=== PATIENT | male | born 1965 | race African-American/Black ===

== ENCOUNTER 2016-10-15 06:13 | Emergency (ER) | payer OTHER ==
[~2016-10-15] VITALS: Ht 182.9 cm; Wt 77.1 kg
[2016-10-15 06:29] VITALS: BP 116/78
--- NOTE | 2016-10-15 06:57 | NUR ---
PT GIVEN FOOD AND A SODA AND WAS TOLD THE IMPLEMENTATION COORDINATOR WILL SEE HIM THIS MORNING IN THE ER LOBBY, PT WALKED OUT OF THE ER WITH A STEADY GAIT
== END 2016-10-15 06:59 | disposition home or self-care (01) ==
LOC: ER 06:13
DX: F15.10 Other stimulant abuse, uncomplicated (principal); Z59.0 Homelessness; F17.210 Nicotine dependence, cigarettes, uncomplicated; I10 Essential (primary) hypertension; J45.909 Unspecified asthma, uncomplicated
CPT/HCPCS: 99283; A4606; Z7610

== ENCOUNTER 2018-03-20 14:14 | Emergency (ER) | payer OTHER ==
[~2018-03-20] VITALS: Ht 182.9 cm; Wt 77.1 kg
--- NOTE | 2018-03-20 14:30 | NUR ---
C/O BLE PAIN FROM "TOO MUCH WALKING AND "FROM PEOPLE FOLLOWING ME." DENIES SI/HI. PT IS AOX4, VSS, RR EVEN AND UNLABORED. CURRENTLY HOMELESS. SKIN COOL TO TOUCH, DRY, INTACT. DENIES SOB, DIZZINESS, WEAKNESS, N/V. READY FOR EVAL.
[2018-03-20 15:21] LABS: BASOPHILS # (AUTO) 0.1 /CMM (0.0-0.2); BASOPHILS % (AUTO) 1.1 % (0.0-2.0); EOSINOPHILS % (AUTO) 2.4 % (0.0-6.0); HEMATOCRIT 42 % (39-51); HEMOGLOBIN 13.8 g/dL (13.5-17.5); LYMPHOCYTES # (AUTO) 1.8 /CMM (0.8-4.8); LYMPHOCYTES % (AUTO) 24.3 % (20.0-44.0); MEAN CORPUSCULAR HGB CONC 33 g/dl (31.0-36.0); MEAN CORPUSCULAR VOLUME 106 fL (80-96); MONOCYTES # (AUTO) 0.5 /CMM (0.1-1.30); MONOCYTES % (AUTO) 6.9 % (2.0-12.0); NEUTROPHILS # (AUTO) 4.9 /CMM (1.8-8.9); NEUTROPHILS % (AUTO) 65.3 % (43.0-81.0); PLATELET COUNT (AUTO) 241 /CMM (150-450); RED BLOOD CELL COUNT(AUTO) 3.94 MIL/uL (4.5-6.0); WHITE BLOOD COUNT (AUTO) 7.5 K/uL (4.3-11.0)
[2018-03-20 15:24] LABS: CALCIUM, SERUM 9.1 mg/dL (8.5-10.1); CARBON DIOXIDE 25 mmol/L (21-32); CHLORIDE 103 mmol/L (98-107); CREATININE 0.9 mg/dL (0.6-1.3); GLUCOSE 85 mg/dL (74-106); POTASSIUM 4.1 mmol/L (3.5-5.1); SODIUM SERUM 137 mmol/L (136-145); UREA NITROGEN, BLOOD 9 mg/dL (7-18)
[2018-03-20 15:29] LABS: ALANINE AMINOTRANSFERASE 20 U/L (12-78); ALBUMIN 3.8 g/dL (3.4-5.0); ALCOHOL, BLOOD < 3 mg/dL (0-0); ALKALINE PHOSPHATASE 50 U/L (46-116); ASPARTATE AMINOTRANSFERASE 19 U/L (15-37); BILIRUBIN,DIRECT 0.1 mg/dL (0.0-0.2); BILIRUBIN,TOTAL 0.6 mg/dL (0.2-1.0); TOTAL PROTEIN, SERUM 7.5 g/dL (6.4-8.2)
[2018-03-20 15:31] LABS: ACETAMINOPHEN < 2 ug/ml (10-30); SALICYLATE 2.1 mg/dL (2.8-20.0)
--- NOTE | 2018-03-20 16:07 | NUR ---
PT PROVIDED MEAL TRAY
--- NOTE | 2018-03-20 16:24 | NUR ---
Patient is resting comfortably in bed with eyes closed. Easily aroused. VSS
[2018-03-20 16:28] LABS: APPEARANCE,URINE Clear (CLEAR); BILIRUBIN,URINE Negative (NEGATIVE); BLOOD, URINE Negative Ery/uL (NEGATIVE); COLOR,URINE Yellow (YELLOW); KETONES,URINE Negative (NEGATIVE); LEUKOCYTE ESTERASE ,URINE Trace (NEGATIVE); NITRITE, URINE Negative (NEGATIVE); PH,URINE 5.5 (5.0-8.0); PROTEIN,URINE Negative (NEGATIVE); UGLUCOSE Negative (NEGATIVE); UROBILINOGEN,URINE 0.2 EU/dL (0.2)
[2018-03-20 16:45] LABS: BACTERIA,URINE Few /HPF (None Seen); RBC,URINE NONE SEEN /HPF (0-2); SQUAMOUS EPITHELIAL CELL,UR Few /HPF (None Seen)
[2018-03-20 17:34] LABS: EOSINOPHILS % (MANUAL) 2 % (0-4); LYMPHOCYTES % (MANUAL) 27 % (16-48); MONOCYTES % (MANUAL) 7 % (0-11.0); NEUTROPHILS % (MANUAL) 64 (42-76)
--- NOTE | 2018-03-20 18:25 | NUR ---
Patient discharged to home in stable condition. Written and verbal after care instructions given. Patient verbalizes understanding of instruction. HOMELESS RESOURCES PROVIDED PER PT REQUEST.
[2018-03-20 18:33] VITALS: BP 125/76
== END 2018-03-20 18:02 | disposition home or self-care (01) ==
LOC: ER 14:17
DX: R25.2 Cramp and spasm (principal); I10 Essential (primary) hypertension; J45.909 Unspecified asthma, uncomplicated; F17.210 Nicotine dependence, cigarettes, uncomplicated; Z98.890 Other specified postprocedural states; Z59.0 Homelessness
CPT/HCPCS: 36415; 80048; 80076; 80305; 80329; 81001; 85025; 99283; A4606; G0480 ×2; Z7610; 81000-TC

== ENCOUNTER 2018-09-23 16:15 | Emergency (ER) | payer OTHER ==
[~2018-09-23] VITALS: Ht 182.9 cm; Wt 77.1 kg
[2018-09-23 16:24] VITALS: BP 140/80
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
--- NOTE | 2018-09-23 16:51 | NUR ---
DR HAMM AT BEDSIDE FOR EVAL.
[2018-09-23] MEDS ORDERED: AZITHROMYCIN 250 MG TABLET PO ONE (17:00)
[2018-09-23] MEDS ORDERED: CEFTRIAXONE 500 MG VIAL IM ONE (17:00)
[2018-09-23] MEDS ORDERED: CEFTRIAXONE 500 MG VIAL ONE (17:21)
[2018-09-23] MEDS ORDERED: AZITHROMYCIN 250 MG TABLET ONE (17:22)
[2018-09-23] MEDS ORDERED: LIDOCAINE 1% INJ 50 ML MDV IJ ONE (17:25)
[2018-09-23] MEDS ORDERED: LIDOCAINE 4% PF AMPUL 40 MG/ML AMPUL ONE (17:27)
--- NOTE | 2018-09-23 18:44 | NUR ---
U/S TECH AT BEDSIDE FOR SCROTAL ULTRASOUND.
[2018-09-23 19:15] LABS: APPEARANCE,URINE Clear (CLEAR); BILIRUBIN,URINE SMALL (NEGATIVE); BLOOD, URINE Trace-intact Ery/uL (NEGATIVE); COLOR,URINE Yellow (YELLOW); KETONES,URINE Negative (NEGATIVE); LEUKOCYTE ESTERASE ,URINE Moderate (NEGATIVE); NITRITE, URINE Negative (NEGATIVE); PROTEIN,URINE Negative (NEGATIVE); UGLUCOSE Negative (NEGATIVE)
[2018-09-23 19:28] LABS: BACTERIA,URINE Many /HPF (None Seen); RBC,URINE 0-2 /HPF (0-2); WBC,URINE TOO NUMEROUS TO COUN /HPF (0-3)
--- NOTE | 2018-09-23 19:28 | NUR ---
REPORT TO CHELSEY LOZANO FOR NALDO.
[2018-09-23 19:29] LABS: SQUAMOUS EPITHELIAL CELL,UR Few /HPF (None Seen)
== END 2018-09-23 20:24 | disposition home or self-care (01) ==
LOC: ER 16:18
DX: A64 Unspecified sexually transmitted disease (principal); N39.9 Disorder of urinary system, unspecified; I10 Essential (primary) hypertension; J45.909 Unspecified asthma, uncomplicated; F17.210 Nicotine dependence, cigarettes, uncomplicated; Z98.890 Other specified postprocedural states; Z59.0 Homelessness
CPT/HCPCS: 76870; 81001; 87086; 87491; 87591; 96372; 99284; J0696; J3490 ×2; 81000-TC

== ENCOUNTER 2018-10-27 14:03 | Emergency (ER) | payer OTHER ==
[~2018-10-27] VITALS: Ht 182.9 cm; Wt 77.1 kg
[2018-10-27 15:07] LABS: BASOPHILS # (AUTO) 0.1 /CMM (0.0-0.2); BASOPHILS % (AUTO) 1.1 % (0.0-2.0); EOSINOPHILS % (AUTO) 2.4 % (0.0-6.0); HEMATOCRIT 41 % (39-51); HEMOGLOBIN 13.6 g/dL (13.5-17.5); LYMPHOCYTES # (AUTO) 1.8 /CMM (0.8-4.8); LYMPHOCYTES % (AUTO) 29.3 % (20.0-44.0); MEAN CORPUSCULAR HGB CONC 33 g/dl (31.0-36.0); MEAN CORPUSCULAR VOLUME 104 fL (80-96); MONOCYTES # (AUTO) 0.5 /CMM (0.1-1.30); MONOCYTES % (AUTO) 8.9 % (2.0-12.0); NEUTROPHILS # (AUTO) 3.5 /CMM (1.8-8.9); NEUTROPHILS % (AUTO) 58.3 % (43.0-81.0); PLATELET COUNT (AUTO) 283 /CMM (150-450); WHITE BLOOD COUNT (AUTO) 6.1 K/uL (4.3-11.0)
--- NOTE | 2018-10-27 15:07 | NUR ---
patient came in due to difuse abd pain, no bm x 4 days. On room air, breathing evenly and unlabored. Ambulatory with steady gait. Kept comfortable, will contiune to monitor accordingly.
[2018-10-27 15:16] LABS: CALCIUM, SERUM 9.3 mg/dL (8.5-10.1); CREATININE 1.2 mg/dL (0.6-1.3); POTASSIUM 4.4 mmol/L (3.5-5.1)
[2018-10-27 15:22] LABS: ALBUMIN 3.9 g/dL (3.4-5.0); BILIRUBIN,DIRECT 0.1 mg/dL (0.0-0.2); BILIRUBIN,TOTAL 0.5 mg/dL (0.2-1.0); TOTAL PROTEIN, SERUM 7.4 g/dL (6.4-8.2)
[2018-10-27 15:34] LABS: EOSINOPHILS % (MANUAL) 2 % (0-4); LYMPHOCYTES % (MANUAL) 27 % (16-48); MONOCYTES % (MANUAL) 9 % (0-11.0); NEUTROPHILS % (MANUAL) 62 (42-76)
[2018-10-27 16:36] LABS: APPEARANCE,URINE Cloudy (CLEAR); BILIRUBIN,URINE MODERATE (NEGATIVE); BLOOD, URINE Negative Ery/uL (NEGATIVE); COLOR,URINE Amber (YELLOW); KETONES,URINE 15 (NEGATIVE); LEUKOCYTE ESTERASE ,URINE Trace (NEGATIVE); NITRITE, URINE Negative (NEGATIVE); PH,URINE 5.5 (5.0-8.0); PROTEIN,URINE 30 mg/dl (NEGATIVE); UGLUCOSE Negative (NEGATIVE)
[2018-10-27 16:56] LABS: BACTERIA,URINE Few /HPF (None Seen); MUCUS,URINE Many /LPF (None Seen); RBC,URINE 0-2 /HPF (0-2); SQUAMOUS EPITHELIAL CELL,UR Few /HPF (None Seen); URINE AMORPHOUS URATE Moderate /HPF (None Seen); WBC,URINE 21-50 /HPF (0-3)
[2018-10-27 18:13] VITALS: BP 130/65
--- NOTE | 2018-10-27 18:14 | NUR ---
Patient discharged to home in stable condition. Written and verbal after care instructions given. Patient verbalizes understanding of instruction. tap card and food provided, left in appropriate clothes.
== END 2018-10-27 18:14 | disposition home or self-care (01) ==
LOC: ER 14:06
DX: R91.1 Solitary pulmonary nodule (principal); N50.89 Other specified disorders of the male genital organs; K76.89 Other specified diseases of liver; N39.0 Urinary tract infection, site not specified; I10 Essential (primary) hypertension; J45.909 Unspecified asthma, uncomplicated; F17.210 Nicotine dependence, cigarettes, uncomplicated; Z98.890 Other specified postprocedural states; Z59.0 Homelessness
CPT/HCPCS: 36415; 80048-TC; 80076-TC; 81000-TC; 83690-TC; 85025-TC; 87086-TC

== ENCOUNTER → 2018-12-21 | Emergency (ER) | payer OTHER ==
[~2018-12-21] VITALS: Ht 177.8 cm; Wt 72.6 kg
[~2018-12-21] MED LIST: IBUPROFEN 600 MG TABLET PO ONE
--- NOTE | 2018-12-21 13:42 | NUR ---
CALLED [employer] [facility] AWARE
--- NOTE | 2018-12-21 13:45 | NUR ---
Social service consult requested by SAJAN Li for homelessness and sober living resources. DONAVON met with the pt. bedside. Pt. is alert and oriented x 4. Pt. appears disheveled and his toe nails have dirt in them. Pt. states he is homeless and is looking for a sober living. DONAVON inquired with pt. if he has the funds to pay for the sober living. Pt. stated, " No, I will have it on January 07." SW informed pt. she will give him a list of sober livings he can call once he has the money. Pt. understood. SW offered pt. longterm placement, however pt. declined. Pt. denies suicidal and homicidal ideations and visual/auditory hallucinations at this time. Pt. was given a list of sober livings along with the following homeless resources: [facility] located at [address] [place] [address] ; [facility], [address] ; [facility] [place], [address] [facility] [place] [place] ; [facility] Homeless Resource Directory which includes food stamps, transitional housing, showers and hot meals etc; Mental Health clinics such as [facility] ; [facility] ; Health clinics;[facility] and Alcohol treatment centers such as [facility], ; [facility] Substance Abuse Hotline and [facility] . Pt. was provided with a sandwich, water and TAP card. Homeless patient waiver form was signed by the pt. and placed in pt's chart. No other social service needs are requested at this time. DONAVON updated pt's RN Landy with pt. discharge plan.
--- NOTE | 2018-12-21 14:10 | NUR ---
PATIENT AWAKE ALERT DENIES SI ,DENIES HALLUCINATION HE REFUSED RESIDENTIAL ,GIVEN REFFERAL BY director of land ,PATIENT GIVEN SNACK AND APPRECIATED IT HE AGREES TO FOLLOW UP PMD IN AM
[2018-12-21 14:13] VITALS: BP 123/78
--- NOTE | 2018-12-21 14:30 | NUR ---
Patient DECLINED CORRECTION DC in stable condition. Written and verbal after care instructions given. Patient verbalizes understanding of instruction.PATIENT WOULD LIKE TO STAY IN PREVIOUS LIVING ARRANGEMENT .CORRECTION REFERRAL GIVEN
== END | disposition home or self-care (01) ==
LOC: ER 12:58
DX: S00.411A Abrasion of right ear, initial encounter (principal); H92.03 Otalgia, bilateral; I10 Essential (primary) hypertension; J45.909 Unspecified asthma, uncomplicated; F10.10 Alcohol abuse, uncomplicated; F17.210 Nicotine dependence, cigarettes, uncomplicated; Y90.9 Presence of alcohol in blood, level not specified; Z59.0 Homelessness; Z98.890 Other specified postprocedural states; X58.XXXA Exposure to other specified factors, initial encounter; Y93.89 Activity, other specified; Y92.89 Other specified places as the place of occurrence of the external cause; Y99.8 Other external cause status

== ENCOUNTER 2019-04-14 10:11 | Emergency (ER) | payer OTHER ==
[~2019-04-14] VITALS: Ht 182.9 cm; Wt 74.8 kg
[2019-04-14 10:16] VITALS: BP 124/76
--- NOTE | 2019-04-14 11:17 | NUR ---
Patient given written and verbal discharge instructions. Patient verbalizes understanding of instructions. Patient is ambulatory with steady gait. Refuses offer of halfway placement. Patient given list of available shelters in surrounding area.
[2019-04-14] MEDS ORDERED: IBUPROFEN 600 MG TABLET PO ONE ×2 (11:30→11:51)
--- NOTE | 2019-04-14 11:40 | NUR ---
FOOD TRAY PROVIDED.
== END 2019-04-14 12:28 | disposition home or self-care (01) ==
LOC: ER 10:13
DX: R10.84 Generalized abdominal pain (principal); I10 Essential (primary) hypertension; J45.909 Unspecified asthma, uncomplicated; F10.10 Alcohol abuse, uncomplicated; F17.210 Nicotine dependence, cigarettes, uncomplicated; Y90.9 Presence of alcohol in blood, level not specified; Z98.890 Other specified postprocedural states; Z59.0 Homelessness

== ENCOUNTER 2019-06-10 14:20 | Emergency (ER) | payer OTHER ==
[~2019-06-10] VITALS: Ht 170.2 cm; Wt 77.1 kg
--- NOTE | 2019-06-10 14:41 | NUR ---
"Cough/congestion x3wks. Live in Sober Living". REPORTS COUGH IS PRODUCTIVE WITH GREEN SPUTUM, AND STATES HAVING SHORTNESS OF BREATH. "A LOT OF PEOPLE HAVE BEEN TOUCHING ME". ALSO C/O LEFT ARM PAIN. NO ACUTE DISTRESS NOTED. RR EVEN AND UNLABORED MADE COMFORTABLE AND READY FOR EVAL.
--- NOTE | 2019-06-10 15:12 | NUR ---
XRAY AT BEDSIDE
--- NOTE | 2019-06-10 16:03 | NUR ---
Patient is resting comfortably in bed with eyes closed. Easily aroused. VSS
[2019-06-10 16:26] VITALS: BP 133/85
[2019-06-19] MEDS ORDERED: ASPI-1169 PO (08:52)
[2019-06-19] MEDS ORDERED: ATOR10TA PO (08:52)
== END 2019-06-10 16:30 | disposition home or self-care (01) ==
LOC: ER 14:22
DX: R05 Cough (principal); F17.210 Nicotine dependence, cigarettes, uncomplicated; I10 Essential (primary) hypertension; J45.909 Unspecified asthma, uncomplicated; Z98.890 Other specified postprocedural states; Z59.0 Homelessness
CPT/HCPCS: 71045-TC

== ENCOUNTER 2019-06-15 16:52 | Inpatient (IN) | payer OTHER ==
[~2019-06-15] VITALS: Ht 182.9 cm; Wt 78.1 kg
--- NOTE | 2019-06-15 16:58 | NUR ---
CAME IN FOR R SIDED SHARP CHEST PAIN RADIATING TO NECK AND BACK WHILE WALKING X 1 HR 3/10 PS, ALSO C/O HEADACHE. TO ER BED 11, HOOKED TO MONITOR, CHANGED TO HOSP GOWN, WARM BLANKET PROVIDED, AWAITING MD AG.
--- NOTE | 2019-06-15 17:01 | NUR ---
COMPUTER TECHNOLOGY TEACHER DEGRASSE AT BEDSIDE
[2019-06-15] MEDS ORDERED: IV NS 0.9% 1,000 ML BAG IV ONE (17:30)
[2019-06-15 17:35] LABS: BASOPHILS # (AUTO) 0.1 /CMM (0.0-0.2); BASOPHILS % (AUTO) 1.2 % (0.0-2.0); EOSINOPHILS % (AUTO) 2.4 % (0.0-6.0); HEMATOCRIT 38 % (39-51); HEMOGLOBIN 12.9 g/dL (13.5-17.5); LYMPHOCYTES % (AUTO) 26.9 % (20.0-44.0); MEAN CORPUSCULAR HGB CONC 34 g/dl (31.0-36.0); MEAN CORPUSCULAR VOLUME 103 fL (80-96); MONOCYTES # (AUTO) 0.7 /CMM (0.1-1.30); MONOCYTES % (AUTO) 9.3 % (2.0-12.0); NEUTROPHILS # (AUTO) 4.5 /CMM (1.8-8.9); NEUTROPHILS % (AUTO) 60.2 % (43.0-81.0); PLATELET COUNT (AUTO) 292 /CMM (150-450); RED BLOOD CELL COUNT(AUTO) 3.75 MIL/uL (4.5-6.0); WHITE BLOOD COUNT (AUTO) 7.5 K/uL (4.3-11.0)
[2019-06-15 17:48] LABS: ALANINE AMINOTRANSFERASE 15 U/L (12-78); ALBUMIN 3.7 g/dL (3.4-5.0); ALKALINE PHOSPHATASE 49 U/L (46-116); ASPARTATE AMINOTRANSFERASE 12 U/L (15-37); BILIRUBIN,DIRECT 0.1 mg/dL (0.0-0.2); BILIRUBIN,TOTAL 0.4 mg/dL (0.2-1.0); CALCIUM, SERUM 8.9 mg/dL (8.5-10.1); CARBON DIOXIDE 30 mmol/L (21-32); CHLORIDE 106 mmol/L (98-107); CREATININE 1.1 mg/dL (0.6-1.3); GLUCOSE 77 mg/dL (74-106); POTASSIUM 3.8 mmol/L (3.5-5.1); SODIUM SERUM 143 mmol/L (136-145); TOTAL PROTEIN, SERUM 7.2 g/dL (6.4-8.2); UREA NITROGEN, BLOOD 11 mg/dL (7-18)
[2019-06-15] MEDS ORDERED: AZITHROMYCIN 500 MG in IV D5W 250 ML IV SCH (18:00)
[2019-06-15] MEDS ORDERED: CEFTRIAXONE 1GM BAG (ER ONLY) 1 GM/50 ML PIGGYBACK IV ONE (18:00)
[2019-06-15] MEDS ORDERED: OLAN15TA3 PO (18:28)
[2019-06-15] MEDS ORDERED: CEFTRIAXONE 1 G in IV D5W 50 ML IV ONE (18:30)
--- NOTE | 2019-06-15 18:30 | NUR ---
HOME HEALTH AID/MED RECON PATIENT UNABLE TO PROVIDE ANY INFO RE: HOME MEDICATION INFORMATION. PER PATIENT REQUEST, CALLED [facility] TECHNICIAN ([phone]) AND OBTAINED MEDICATION INFORMATION.
[2019-06-15 18:50] LABS: FERRITIN 60 ng/mL (8-388)
--- NOTE | 2019-06-15 19:11 | NUR ---
REPORT GIVEN TO YADIRA LOZANO FOR NALDO
--- NOTE | 2019-06-15 19:19 | NUR ---
PAGED [facility].
--- NOTE | 2019-06-15 19:37 | NUR ---
REPORT RECEIVED FROM MARTA HUGO FOR NALDO
--- NOTE | 2019-06-15 20:03 | NUR ---
URINE COLLECTED AND SENT TO LAB
--- NOTE | 2019-06-15 20:03 | NUR ---
WHITE SWAB SENT TO LAB
--- NOTE | 2019-06-15 20:21 | NUR ---
BED ASSIGNMENT TELE 105
[2019-06-15 20:25] LABS: APPEARANCE,URINE Clear (CLEAR); BACTERIA,URINE None seen /HPF (None Seen); BILIRUBIN,URINE Negative (NEGATIVE); BLOOD, URINE Negative Ery/uL (NEGATIVE); COLOR,URINE Yellow (YELLOW); KETONES,URINE Negative (NEGATIVE); LEUKOCYTE ESTERASE ,URINE Trace (NEGATIVE); NITRITE, URINE Negative (NEGATIVE); PROTEIN,URINE Negative (NEGATIVE); RBC,URINE 0-2 /HPF (0-2); SQUAMOUS EPITHELIAL CELL,UR Few /HPF (None Seen); UGLUCOSE Negative (NEGATIVE); UROBILINOGEN,URINE 0.2 EU/dL (0.2); WBC,URINE 0-2 /HPF (0-3)
--- NOTE | 2019-06-15 20:27 | NUR ---
CALL BACK IN 15 MINUTES
--- NOTE | 2019-06-15 20:54 | NUR ---
CALLED BACK TO GIVE REPORT, NURSE IS NOT READY
[2019-06-15 21:00] VITALS: BP 116/93
[2019-06-15] MEDS ORDERED: MAG HYDROX/AL HYDROX/SIMETH 30 ML UDC PO PRN (21:00)
[2019-06-15] MEDS ORDERED: ONDANSETRON HCL/PF 4 MG/2 ML VIAL IVP PRN (21:00)
[2019-06-15] MEDS ORDERED: ACETAMINOPHEN 325 MG TABLET PO PRN (21:00)
[2019-06-15] MEDS ORDERED: MAGNESIUM HYDROXIDE 30 ML UDC PO PRN (21:00)
[2019-06-15] MEDS ORDERED: Z GUARD REMEDY 2 OZ OINT TP PRN (21:00)
--- NOTE | 2019-06-15 21:32 | NUR ---
REPORT GIVEN TO MARTA PERDUE
--- NOTE | 2019-06-15 21:34 | NUR ---
Received report from MARTA Nino.
--- NOTE | 2019-06-15 21:41 | NUR ---
RN OPENING NOTE: Pt transferred to unit via gurney accompanied by RN and tech. Ambulated to bed, skin check done, head to toe done. Pt A&Ox4. On RA, no respiratory distress or SOB noted. On tele monitor showing SR w/ 1st degree AV block. No IV access, d/c'd in ER. Urinal at bedside. Vitals: BP: 116/93 P: 82 RR: 20 O2 100% T 98.5. Pt's cigarettes and metallurgical lab technician taken, labeled and placed in contraband safe. Pt aware. Safety measures in place. Bed in lowest and locked position, side rails up x2, call light within reach. Will continue to monitor.
--- NOTE | 2019-06-15 21:46 | NUR ---
PT TRANSFERED PER ACLS PROTOCOL
[2019-06-15] MEDS: OLANZAPINE 10 MG TABLET PO SCH (22:10)
[2019-06-15] MEDS: ENOXAPARIN SODIUM 40 MG/0.4 ML DISP.SYRIN SQ SCH (22:11)
[2019-06-16] VITALS: BP 93/65
[2019-06-16 04:00] VITALS: BP 107/72
--- NOTE | 2019-06-16 06:42 | NUR ---
RN CLOSING NOTE: Pt resting in bed, A&Ox4. On isolation for R/O Covid. On RA O2 sat WNL. No respiratory distress or SOB noted. No acute changes noted during shift. On tele monitor fluctuating between SB and SR w/ 1st degree AV block. IV site on RAC patent and flushing. Dressing c/d/i. Safety measures in place. Will endorse to AM nurse for NALDO.
[2019-06-16 06:44] LABS: BASOPHILS # (AUTO) 0.1 /CMM (0.0-0.2); BASOPHILS % (AUTO) 1.2 % (0.0-2.0); EOSINOPHILS % (AUTO) 3.5 % (0.0-6.0); HEMATOCRIT 40 % (39-51); LYMPHOCYTES # (AUTO) 2.4 /CMM (0.8-4.8); LYMPHOCYTES % (AUTO) 38.8 % (20.0-44.0); MEAN CORPUSCULAR HGB CONC 32 g/dl (31.0-36.0); MEAN CORPUSCULAR VOLUME 102 fL (80-96); MONOCYTES # (AUTO) 0.6 /CMM (0.1-1.30); MONOCYTES % (AUTO) 9.3 % (2.0-12.0); NEUTROPHILS # (AUTO) 2.9 /CMM (1.8-8.9); NEUTROPHILS % (AUTO) 47.2 % (43.0-81.0); PLATELET COUNT (AUTO) 273 /CMM (150-450); RED BLOOD CELL COUNT(AUTO) 3.95 MIL/uL (4.5-6.0); WHITE BLOOD COUNT (AUTO) 6.1 K/uL (4.3-11.0)
[2019-06-16 06:52] LABS: CALCIUM, SERUM 8.6 mg/dL (8.5-10.1); CREATININE 0.9 mg/dL (0.6-1.3); MAGNESIUM 2.1 mg/dL (1.8-2.4); POTASSIUM 3.9 mmol/L (3.5-5.1)
[2019-06-16 07:03] LABS: THYROID STIMULATING HORMONE 1.857 uIU/mL (0.358-3.74)
[2019-06-16 08:00] VITALS: BP 148/81
[2019-06-16] MEDS: ASPIRIN 81 MG TAB.CHEW PO SCH (09:46)
[2019-06-16] MEDS: ATORVASTATIN 10 MG TABLET PO SCH (09:46)
[2019-06-16 12:00] VITALS: BP 143/91
[2019-06-16 16:00] VITALS: BP 121/76
[2019-06-16] MEDS: AZITHROMYCIN 500 MG in IV D5W 250 ML IV SCH (16:51)
[2019-06-16] MEDS: CEFTRIAXONE 1 G in IV D5W 50 ML IV SCH (17:45)
--- NOTE | 2019-06-16 18:00 | NUR ---
Perineal care, reposition. Large, soft brown bowel movement output. Marcin Messina RN
--- NOTE | 2019-06-16 18:57 | NUR ---
Handoff with night team registered nurse. Marcin Messina RN
--- NOTE | 2019-06-16 19:20 | NUR ---
MS RN RECEIVE PT IN BED A/O X 4 ON CARDIAC MONITORING, SR 94'S HR RESPIRATIONS EVEN AND UNLABORED, STABLE. NO S/S OF DISTRESS, 02 SAT 100%. SAFETY MEASURES AT ALL TIMES. WILL CONT TO MONITOR
[2019-06-16 20:00] VITALS: BP 118/72
[2019-06-16] MEDS: OLANZAPINE 10 MG TABLET PO SCH (22:00)
[2019-06-16] MEDS: HYDROCODONE/APAP 5/325MG 1 EACH TABLET PO PRN (22:00)
[2019-06-16] MEDS: ENOXAPARIN SODIUM 40 MG/0.4 ML DISP.SYRIN SQ SCH (22:03)
[2019-06-17] VITALS (8 sets, daily range): BP systolic 106–141; BP diastolic 59–95
--- NOTE | 2019-06-17 06:18 | NUR ---
TOOTH POLISHER PT ASLEEP AND EASILY AWAKEN, O2 SAT 100%. SLEPT WELL AND MONITORED ACCORDINGLY. ALL NEEDS ATTENDED AND ANTICIPATED, KEPT CLEAN, DRY AND COMFORTABLE. ON CARDIAC MONITORING SR 60 HR IN TELE MONITOR. NO C/O OF PAIN AT THIS TIME. NURSING CARE RENDERED. SAFETY MEASURES AT ALL TIMES. WILL CONT TO ENDORSE POC.
--- NOTE | 2019-06-17 06:33 | NUR ---
LAB CALLED CRITICAL LOW HGB PAGED HOSPITALIST AWAITING CALL BACK Addendum: 06/17/19 at 0634 by KELLE BARROS RN MISTAKEN ENTRY PLS DISREGARD THIS DOCUMENTATION THIS IS FOR DIFFERENT PATIENT
--- NOTE | 2019-06-17 07:35 | NUR ---
REHABILITATOR OPENING NOTES RECEIVED PT IN BED, ASLEEP, EASILY AROUSED. A/O X4. PT ON RA, WITH NO ACUTE RESPIRATORY DISTRESS NOTED. PT DENIES PAIN OR ANY DISCOMFORT AT THIS TIME. PT DENIES ANY CONCERNS AT THIS TIME WELL. ON TELEMONITORING WITH SB 55, DENIES CHEST PAIN. PIV TO RAC G20, FLUSHED WITH NS, INTACT AND OPERATIONAL. PT KEPT COMFORTABLE IN BED. PT'S BED IN LOWEST, LOCKED POSITION WITH SR X3. CALL LIGHT KEPT WITHIN REACH. WILL CONTINUE PLAN OF CARE.
[2019-06-17] MEDS: ATORVASTATIN 10 MG TABLET PO SCH (08:16)
[2019-06-17] MEDS: ASPIRIN 81 MG TAB.CHEW PO SCH (08:16)
[2019-06-17] MEDS: AZITHROMYCIN 500 MG in IV D5W 250 ML IV SCH (16:05)
[2019-06-17] MEDS: CEFTRIAXONE 1 G in IV D5W 50 ML IV SCH (17:09)
--- NOTE | 2019-06-17 18:38 | NUR ---
MANAGER RN CASE CLOSING NOTES PT REMAINS IN BED,AWAKE. A/O X4. PT ON RA, WITH NO ACUTE RESPIRATORY DISTRESS NOTED. PT DENIES PAIN OR ANY DISCOMFORT AT THIS TIME. ON TELEMONITORING WITH SR 68. PIV TO RAC G20, FLUSHED WITH NS, INTACT AND OPERATIONAL. ALL NEEDS AND CARE ATTENDED. PT KEPT COMFORTABLE IN BED. PT'S BED IN LOWEST, LOCKED POSITION WITH SR X3. CALL LIGHT KEPT WITHIN REACH. WILL ENDORSE TO INCOMING NIGHT NURSE FOR NALDO.
--- NOTE | 2019-06-17 20:00 | NUR ---
RN NOTES ALERT AND ORIENTED X4, ROOM AIR, NO DISTRESS, ABDOMINAL PAIN, NO N/V, TOLERATING ORAL DIET, R/O COVID, STRICT ISOLATION PRECAUTION, WILL CONTINUE TO MONITOR.
[2019-06-17] MEDS: ENOXAPARIN SODIUM 40 MG/0.4 ML DISP.SYRIN SQ SCH (20:45)
[2019-06-17] MEDS: OLANZAPINE 10 MG TABLET PO SCH (20:46)
[2019-06-17] MEDS: HYDROCODONE/APAP 5/325MG 1 EACH TABLET PO PRN (21:06)
[2019-06-18] VITALS (8 sets, daily range): BP systolic 100–126; BP diastolic 54–84
--- NOTE | 2019-06-18 06:14 | NUR ---
RN NOTES PM SHIFT ALERT AND ORIENTED X4, ROOM AIR, DIMINISHED LUNG SOUNDS, INTERMITTENT DRY COUGH, COMPLAINED OF ABDOMINAL PAIN, NORCO 1 TAB GIVEN WITH GOOD RELIEF, R/O COVID, TEST DONE 06/15/19, POSSIBLE COMMUNITY ACQUIRED PNA, CONTACT ASTRONAUTICAL ENGINEER ON DISCHARGE AT , PT CAME FROM SOBER LIVING
--- NOTE | 2019-06-18 07:30 | NUR ---
Tele/RN Opening Note Received patient AO X 4, Able to responds all stimuli. Does no c/o pain or discomfort, no adverse reaction observed from ATB therapy. Skin is warm to touch clean/dry, intact IV site. No sob or distress observed from respiratory. Keep remain lower position of the bed with locked wheel, call light within reach, will continue to monitor.
[2019-06-18] MEDS: ASPIRIN 81 MG TAB.CHEW PO SCH (08:24)
[2019-06-18] MEDS: ATORVASTATIN 10 MG TABLET PO SCH (08:24)
[2019-06-18] MEDS: AZITHROMYCIN 500 MG in IV D5W 250 ML IV SCH (16:59)
[2019-06-18] MEDS: CEFTRIAXONE 1 G in IV D5W 50 ML IV SCH (17:43)
--- NOTE | 2019-06-18 18:25 | NUR ---
Tele/RN closing Note Patient in bed, watching TV comfortably, denies pain or any discomfort, no adverse reaction observed from ATB therapy. Respiratory even and unlabored, no distress observed, no sob also. Encouraged oral fluid intake as tolerated Keep remain lower position of the bed and locked wheel for safety. Still pending covid test result. Call light within reach, will endorse restaurant shift supervisor .
--- NOTE | 2019-06-18 19:15 | NUR ---
Tele/RN opening Note report recieved from armand sebastian. pt seen and pt denies pain or discomfort, Respirations are even and unlabored, in no apparent distress bed locked and in the lowest position. covid isolation precuations in place. Still pending covid test result. Call light within reach, will cont to monitor.
[2019-06-18] MEDS: ENOXAPARIN SODIUM 40 MG/0.4 ML DISP.SYRIN SQ SCH (21:41)
[2019-06-18] MEDS: OLANZAPINE 10 MG TABLET PO SCH (21:42)
[2019-06-19 00:30] VITALS: BP 115/69
[2019-06-19 04:00] VITALS: BP 121/78
--- NOTE | 2019-06-19 06:40 | NUR ---
Tele/RN CLOSING Note PATIENT IN BED DENIES PAIN DISCOMFORT RESP EVEN AND UNLABORED IN NO APPARENT DISTRESS. BED DOWN LOCKED . PATIENT COVID TEST RESULTED YESTERDAY AND THE RESULTS WERE NEGATIVE. Call light within reach, BEING MONITORED ON TURRET LATHE SET UP OPERATOR. RATE IS AT 71.
[2019-06-19 08:00] VITALS: BP 115/71
--- NOTE | 2019-06-19 08:00 | NUR ---
RN NOTES RECEIVED PATIENT IN THE ROOM WALKING SURROUNDING. PATIENT NEGATIVE FOR COVIS -19 RESULT, JNOA CUTE RESPIRATORY DISTRESS, V/S STABLE. ADMINISTERED SCHEDULED MEDICATION . PER HOSPITALIST PATIENT WILL DISCHARGE HOME. CALL LIGHT WITHIN TO REACH, PATIENT SELF CARE. NEEDS ATTENDED AND ANTICIPATED. CALL LIGHT WITHIN TO REACH. CONTINUED MONITORING.
[2019-06-19] MEDS ORDERED: ATOR10TA PO (08:52)
[2019-06-19] MEDS ORDERED: ASPI-1169 PO (08:52)
[2019-06-19] MEDS: ATORVASTATIN 10 MG TABLET PO SCH (09:25)
[2019-06-19] MEDS: ASPIRIN 81 MG TAB.CHEW PO SCH (09:25)
--- NOTE | 2019-06-19 11:40 | NUR ---
PV INSTALLER TECH NOTES PATIENT DISCHARGE AT THIS TIME GOING HOME. PATIENT STABLE NO ACUTE RESPIRATORY DISTRESS, V/S STABLE, REFUSED PAIN. MED RECONCILIATION AND DISCHARGE ORDER REVIEWED AND EXPLAINED TO. PATIENT VERBALIZED UNDERSTANDING. PRESCRIPTION HANDED TO THE PATIENT. PATIENT WILL FOLLOW PRIMARY MD. ESCORTED PATIENT TO THE LOBBY FOR SAFETY. PATIENT AMBULATE OUT OF HOSPITAL.
== END 2019-06-19 11:15 | disposition home or self-care (01) | DRG 139 ==
LOC: ER 16:52 → TELE1 20:55
PROVIDERS: ADMIT Nurse Practitioner Acute Care; ATTEND Internal Medicine
DX: J15.9 Unspecified bacterial pneumonia (principal); F20.9 Schizophrenia, unspecified; I25.10 Atherosclerotic heart disease of native coronary artery without angina pectoris; I10 Essential (primary) hypertension; J45.909 Unspecified asthma, uncomplicated; F17.210 Nicotine dependence, cigarettes, uncomplicated; I25.2 Old myocardial infarction; Z71.6 Tobacco abuse counseling; J98.11 Atelectasis; R07.81 Pleurodynia
CPT/HCPCS: 36415; 71045-TC; 80048-TC; 80061-TC; 80076-TC; 81000-TC; 82728-TC; 83615-TC; 83735-TC; 84100-TC; 84443-TC; 84484-TC; 85025-TC; 85378-TC; 85730-TC; 86140-TC; 87040-TC; 87081-TC; 87491; 87591; 93307-TC; G0378; J0456; J0696; J1650; J7030; J7050; J7060; U0002

== ENCOUNTER 2019-06-22 08:22 | Emergency (ER) | payer OTHER ==
[~2019-06-22] VITALS: Ht 182.9 cm; Wt 77.1 kg
[~2019-06-22 08:22] MED LIST changes: +ASPI-1169 PO; +ATOR10TA PO; -IBUPROFEN 600 MG TABLET PO ONE; +OLAN15TA3 PO
--- NOTE | 2019-06-22 08:35 | NUR ---
BIB SELF FOR R SIDED SHARP CHEST PAIN THAT STARTED THIS MORNING 06/16 PS. ALSO C/O DIZZINESS AND COUGH, TO ER BED 7, HOOKED TO MONITOR, CHANGED TO HOSP GOWN, WARM BLANKET PROVIDED, PATIENT AOx 4, BREATHING EVEN AND UNLABORED. DR ANN AT BEDSIDE FOR EVAL.
[2019-06-22] MEDS ORDERED: ASPIRIN 81 MG TAB.CHEW ONE (08:42)
[2019-06-22] MEDS ORDERED: ASPIRIN 81 MG TAB.CHEW PO ONE (09:00)
[2019-06-22 09:04] LABS: BASOPHILS # (AUTO) 0.1 /CMM (0.0-0.2); BASOPHILS % (AUTO) 0.8 % (0.0-2.0); EOSINOPHILS % (AUTO) 2.3 % (0.0-6.0); HEMATOCRIT 41 % (39-51); HEMOGLOBIN 13.7 g/dL (13.5-17.5); LYMPHOCYTES # (AUTO) 2.1 /CMM (0.8-4.8); LYMPHOCYTES % (AUTO) 22.9 % (20.0-44.0); MEAN CORPUSCULAR HGB CONC 33 g/dl (31.0-36.0); MONOCYTES # (AUTO) 0.7 /CMM (0.1-1.30); MONOCYTES % (AUTO) 7.5 % (2.0-12.0); NEUTROPHILS # (AUTO) 6.1 /CMM (1.8-8.9); NEUTROPHILS % (AUTO) 66.5 % (43.0-81.0); PLATELET COUNT (AUTO) 276 /CMM (150-450); RED BLOOD CELL COUNT(AUTO) 4.01 MIL/uL (4.5-6.0); WHITE BLOOD COUNT (AUTO) 9.1 K/uL (4.3-11.0)
[2019-06-22 09:05] LABS: MEAN CORPUSCULAR VOLUME 103 fL (80-96)
--- NOTE | 2019-06-22 09:05 | NUR ---
property technician at bedside
[2019-06-22 09:08] LABS: CARBON DIOXIDE 29 mmol/L (21-32); CHLORIDE 104 mmol/L (98-107); CREATININE 1.1 mg/dL (0.6-1.3); GLUCOSE 99 mg/dL (74-106); POTASSIUM 3.8 mmol/L (3.5-5.1); SODIUM SERUM 140 mmol/L (136-145); UREA NITROGEN, BLOOD 13 mg/dL (7-18)
--- NOTE | 2019-06-22 09:48 | NUR ---
PATIENT LIVES IN SOBER LIVING IN [place] AT THIS TIME. VERBALIZED THAT AFTER THAT, HE SOMETIMES LIVES WITH BROTHER AND SOMETIMES WITH OTHER FAMILY.
--- NOTE | 2019-06-22 09:51 | NUR ---
Patient given written and verbal discharge instructions. Patient verbalizes understanding of instructions. Patient is ambulatory with steady gait. Refuses offer of [facility] placement. Patient given list of available shelters in surrounding area. Patient in proper clothing upon discharge. All belongings returned to patient. Name band removed. Signed homeless waiver form.
[2019-06-22 09:52] VITALS: BP 141/82
== END 2019-06-22 10:04 | disposition home or self-care (01) ==
LOC: ER 08:22
DX: R07.89 Other chest pain (principal); I10 Essential (primary) hypertension; Z98.890 Other specified postprocedural states; Z79.899 Other long term (current) drug therapy; Z79.82 Long term (current) use of aspirin
CPT/HCPCS: 36415; 71045-TC; 80048-TC; 84484-TC; 85025-TC

== ENCOUNTER 2019-07-13 08:51 | Emergency (ER) | payer OTHER ==
[~2019-07-13] VITALS: Ht 182.9 cm; Wt 77.1 kg
[2019-07-13 09:08] VITALS: BP 116/72
--- NOTE | 2019-07-13 09:12 | NUR ---
SEEN AND EXAMINED BY .
--- NOTE | 2019-07-13 09:17 | NUR ---
URINE SPECIMEN COLLECTED AND SENT TO LAB
[2019-07-13] MEDS ORDERED: LIDOCAINE VISCOUS 2% UD 15 ML UDC ONE (09:19)
[2019-07-13] MEDS ORDERED: MAG HYDROX/AL HYDROX/SIMETH 30 ML UDC ONE (09:19)
[2019-07-13] MEDS ORDERED: KETOROLAC TROMETHAMINE 15 MG/ML VIAL ONE (09:19)
[2019-07-13] MEDS ORDERED: FAMOTIDINE (20 MG) 20 MG TABLET ONE (09:20)
[2019-07-13] MEDS ORDERED: ONDANSETRON 4 MG TAB.RAPDIS ONE (09:20)
[2019-07-13] MEDS ORDERED: KETOROLAC TROMETHAMINE INJ 30 MG/ML VIAL IM ONE (09:30)
[2019-07-13] MEDS ORDERED: LIDOCAINE VISCOUS 2% UD 15 ML UDC MM ONE (09:30)
[2019-07-13] MEDS ORDERED: MAG HYDROX/AL HYDROX/SIMETH 30 ML UDC PO ONE (09:30)
[2019-07-13] MEDS ORDERED: ONDANSETRON 4 MG TAB.RAPDIS SL ONE (09:30)
[2019-07-13] MEDS ORDERED: FAMOTIDINE (20 MG) 20 MG TABLET PO ONE (09:30)
--- NOTE | 2019-07-13 09:49 | NUR ---
Patient given written and verbal discharge instructions. Patient verbalizes understanding of instructions. Patient is ambulatory with steady gait. Refuses offer of half-way placement. Patient given list of available shelters in surrounding area.
== END 2019-07-13 09:51 | disposition home or self-care (01) ==
LOC: ER 08:51
DX: R10.13 Epigastric pain (principal); M79.18 Myalgia, other site; G89.29 Other chronic pain; R11.2 Nausea with vomiting, unspecified; E78.5 Hyperlipidemia, unspecified; I10 Essential (primary) hypertension; K21.9 Gastro-esophageal reflux disease without esophagitis; Z98.890 Other specified postprocedural states; Z79.899 Other long term (current) drug therapy; Z79.82 Long term (current) use of aspirin
CPT/HCPCS: 96372; 99284; J1885; Q0162

== ENCOUNTER 2019-08-30 15:08 | Inpatient (IN) | payer OTHER ==
[~2019-08-30] VITALS: Ht 182.9 cm; Wt 80.7 kg
--- NOTE | 2019-08-30 15:10 | NUR ---
PT BIB SELF C/O R ARM PARALYSIS. PT IS AAOX4, NOT IN RESPIRATORY DISTRESS, HOOKED TO CAMP COORDINATOR, KEPT RESTED AND COMFORTABLE, WILL CONTINUE TO MONITOR.
--- NOTE | 2019-08-30 15:39 | NUR ---
PT SEEN AND EXAMINED BY
--- NOTE | 2019-08-30 16:18 | NUR ---
PT IS BACK FROM CT SCAN.
--- NOTE | 2019-08-30 16:30 | NUR ---
PT IV LINE ESTABLISHED BLOOD DRAWN AND SENT TO LAB.
[2019-08-30 16:39] LABS: BASOPHILS # (AUTO) 0.1 /CMM (0.0-0.2); BASOPHILS % (AUTO) 1.1 % (0.0-2.0); EOSINOPHILS % (AUTO) 2.7 % (0.0-6.0); HEMATOCRIT 35 % (39-51); HEMOGLOBIN 11.4 g/dL (13.5-17.5); LYMPHOCYTES # (AUTO) 1.5 /CMM (0.8-4.8); LYMPHOCYTES % (AUTO) 23.6 % (20.0-44.0); MEAN CORPUSCULAR HGB CONC 33 g/dl (31.0-36.0); MEAN CORPUSCULAR VOLUME 102 fL (80-96); MONOCYTES # (AUTO) 0.6 /CMM (0.1-1.30); MONOCYTES % (AUTO) 8.4 % (2.0-12.0); NEUTROPHILS # (AUTO) 4.2 /CMM (1.8-8.9); NEUTROPHILS % (AUTO) 64.2 % (43.0-81.0); PLATELET COUNT (AUTO) 317 /CMM (150-450); WHITE BLOOD COUNT (AUTO) 6.5 K/uL (4.3-11.0)
[2019-08-30 16:49] LABS: CALCIUM, SERUM 9.3 mg/dL (8.5-10.1); CARBON DIOXIDE 28 mmol/L (21-32); CHLORIDE 105 mmol/L (98-107); CREATININE 1.1 mg/dL (0.6-1.3); GLUCOSE 98 mg/dL (74-106); POTASSIUM 3.9 mmol/L (3.5-5.1); SODIUM SERUM 139 mmol/L (136-145); UREA NITROGEN, BLOOD 28 mg/dL (7-18)
[2019-08-30 16:54] LABS: ALANINE AMINOTRANSFERASE 20 U/L (12-78); ALBUMIN 3.6 g/dL (3.4-5.0); ALKALINE PHOSPHATASE 58 U/L (46-116); ASPARTATE AMINOTRANSFERASE 16 U/L (15-37); BILIRUBIN,DIRECT 0.1 mg/dL (0.0-0.2); BILIRUBIN,TOTAL 0.2 mg/dL (0.2-1.0); TOTAL PROTEIN, SERUM 7.3 g/dL (6.4-8.2)
[2019-08-30] MEDS ORDERED: IV NS 0.9% 250 ML IV ONE ×2 (17:28→17:45)
[2019-08-30] MEDS ORDERED: IOHEXOL-350 100 ML VIAL IV ONE ×2 (17:28→17:45)
--- NOTE | 2019-08-30 18:08 | NUR ---
CALLED [facility], PAGED FELIPA PORTER DNP
[2019-08-30] MEDS ORDERED: TRAZ-257 PO (18:19)
[2019-08-30] MEDS ORDERED: CHOL10002 PO (18:19)
[2019-08-30] MEDS ORDERED: MULT-447 PO (18:19)
[2019-08-30] MEDS ORDERED: ESCI10TA PO (18:19)
[2019-08-30] MEDS ORDERED: ASPI-1169 PO (18:19)
[2019-08-30] MEDS ORDERED: QUET200T PO (18:19)
--- NOTE | 2019-08-30 19:25 | NUR ---
REPORT RECEIVED FROM MARISA ALVARENGA RN FOR NALDO
--- NOTE | 2019-08-30 19:45 | NUR ---
REPORT GIVEN TO MARTA OSMAN FOR NALDO
[2019-08-30 20:00] VITALS: BP 113/60
[2019-08-30] MEDS ORDERED: Z GUARD REMEDY 2 OZ OINT TP PRN (20:00)
[2019-08-30] MEDS ORDERED: MAGNESIUM HYDROXIDE 30 ML UDC PO PRN (20:00)
[2019-08-30] MEDS ORDERED: MAG HYDROX/AL HYDROX/SIMETH 30 ML UDC PO PRN (20:00)
[2019-08-30] MEDS ORDERED: ACETAMINOPHEN 325 MG TABLET PO PRN (20:00)
[2019-08-30] MEDS ORDERED: HYDROCODONE/APAP 5/325MG TABLET PO PRN (20:00)
[2019-08-30] MEDS ORDERED: ONDANSETRON HCL/PF 4 MG/2 ML VIAL IVP PRN (20:00)
[2019-08-30 20:20] VITALS: BP 113/60
--- NOTE | 2019-08-30 20:20 | NUR ---
RN MS ADMITTING OPENING NOTES RECEIVED PATIENT FROM ER VIA [facility] SAFELY TRANSFERRED TO BED AMBULATED WITH STAND BY ASSIST, AWAKE ALERT AND ORIENTED X 3, RESPIRATIONS EVEN AND UNLABORED WITH EQUAL RISE AND FALL OF CHEST. ADMITTED FOR RIGHT ARM WEAKNESS, NOTED PATIENT UNABLE TO MOVE OR LIFT ARM INDEPENDENTLY AND ASSISTS SELF WITH LEFT HAND TO MOVE RIGHT ARM. RIGHT ARM ELEVATED WITH PILLOW, IV SITE TO LEFT IJ #20 G INTACT AND PATENT, NO REDNESS, NO INFILTRATION PRESENT, STATES PAIN 6/10 TO ARM ACHING. BELONGINGS LIST DONE, BODY ASSESSMENT DONE NOTED SKIN INTACT, POSTERIOR UPPER NECK/BACK NOTED WITH SURGICAL SCAR. ORIENTED TO STAFF AND CALL LIGHT AND KEPT WITHIN REACH, SAFETY PRECAUTIONS IN PLACE, LOW BED AND LOCKED,ALL NEEDS ATTENDED AT THIS TIME, WILL CONTINUE TO MONITOR AND CARRY OUT MD ORDERS.
--- NOTE | 2019-08-30 21:01 | NUR ---
rn ms notes patient complained of pain to right arm 6/10 and requested for his trazodone. prn given as ordered, vs wnl , will continue to monitor for effectiveness.
[2019-08-30] MEDS ORDERED: TRAZODONE 50 MG TABLET PO PRN (22:00)
[2019-08-30] MEDS: QUETIAPINE FUMARATE 100 MG TABLET PO SCH (22:59)
--- NOTE | 2019-08-31 00:02 | NUR ---
rn ms notes patient noted with IJ iv site, per ER had requested for midline insertion. midline order received from Dr. toledo. midline nurse at bedside.
--- NOTE | 2019-08-31 00:43 | NUR ---
rn ms notes new midline inserted to Left Brachial Vein 18g Midline in place. c/d/i
--- NOTE | 2019-08-31 06:28 | NUR ---
RN MS CLOSING NOTES PATIENT IN BED ,SLEEPING EASILY AROUSABLE, ALERT AND ORIENTED X 3, RESPIRATIONS EVEN AND UNLABORED WITH EQUAL RISE AND FALL OF CHEST. RIGHT ARM WEAKNESS ELEVATED WITH PILLOW, IV SITE TO LEFT IJ #20 G INTACT AND PATENT,NEW SITE TO LEFT UPPER ARM MIDLINE , NO REDNESS, NO INFILTRATION PRESENT, AT THIS TIME DENIES PAIN . SNACKS AND FLUIDS PROVIDED, ALL DUE MEDS GIVEN, WILL CONTINUE TO MONITOR AND ENDORSE TO NEXT,REMAINS COMFORTABLE.
--- NOTE | 2019-08-31 07:20 | NUR ---
MS RN RECEIVED ON BED, SLEEPING, NOT IN ANY FORM OF DISTRESS, RESPIRATIONS EVEN AND UNLABORED,NO SOB NOTED,LUNGS ARE CLEAR,ABDOMEN SOFT,POSITIVE BOWEL SOUNDS,DENIES PAIN AT THIS TIME,ALL NEEDS ATTENDED.
[2019-08-31 08:00] VITALS: BP 110/66
[2019-08-31 08:09] LABS: BASOPHILS # (AUTO) 0.1 /CMM (0.0-0.2); BASOPHILS % (AUTO) 0.8 % (0.0-2.0); EOSINOPHILS % (AUTO) 2.6 % (0.0-6.0); HEMATOCRIT 35 % (39-51); HEMOGLOBIN 11.6 g/dL (13.5-17.5); LYMPHOCYTES # (AUTO) 1.8 /CMM (0.8-4.8); LYMPHOCYTES % (AUTO) 28.2 % (20.0-44.0); MEAN CORPUSCULAR HGB CONC 33 g/dl (31.0-36.0); MEAN CORPUSCULAR VOLUME 102 fL (80-96); MONOCYTES # (AUTO) 0.5 /CMM (0.1-1.30); MONOCYTES % (AUTO) 7.1 % (2.0-12.0); NEUTROPHILS % (AUTO) 61.3 % (43.0-81.0); PLATELET COUNT (AUTO) 316 /CMM (150-450); RED BLOOD CELL COUNT(AUTO) 3.45 MIL/uL (4.5-6.0); WHITE BLOOD COUNT (AUTO) 6.5 K/uL (4.3-11.0)
[2019-08-31 08:52] LABS: CALCIUM, SERUM 8.6 mg/dL (8.5-10.1); CREATININE 0.9 mg/dL (0.6-1.3); PHOSPHORUS 3.4 mg/dL (2.5-4.9)
[2019-08-31 08:56] LABS: THYROID STIMULATING HORMONE 1.715 uIU/mL (0.358-3.74)
[2019-08-31] MEDS: CHOLECALCIFEROL 1,000 UNIT TABLET (VIT D3) PO SCH (09:14)
[2019-08-31] MEDS: ASPIRIN 81 MG TAB.CHEW PO SCH (09:14)
[2019-08-31] MEDS: ESCITALOPRAM OXALATE (10 MG) 10 MG TABLET PO SCH (09:14)
[2019-08-31] MEDS: MULTIVITAMINS,THERAGRAN 1 UDTAB TABLET PO SCH (09:14)
[2019-08-31] MEDS: PANTOPRAZOLE 40 MG TABLET.DR PO SCH (09:15)
--- NOTE | 2019-08-31 09:50 | NUR ---
ms sebastian breakfast served,due meds given,tolerated well.
[2019-08-31 16:00] VITALS: BP 118/70
--- NOTE | 2019-08-31 16:00 | NUR ---
ms rn was able to facetime dr. helms w/ orders made and carried out.
--- NOTE | 2019-08-31 18:23 | NUR ---
ms rn on bed.no distress noted.
--- NOTE | 2019-08-31 19:30 | NUR ---
RN MS OPENING NOTES RECEIVED PATIENT IN BED RESTING, ALERT AND ORIENTED X 3. NO SOB OR DISTRESS NOTED AT THIS TIME. IV SITE TO LEFT IJ #20 G INTACT AND PATENT, LEFT UPPER ARM MIDLINE , NO REDNESS, NO INFILTRATION PRESENT. SAFETY MEASURES ARE IN PLACE, BED IN LOW POSITION AND LOCKED, SIDERAILS UP X 2, CALL LIGHT IS WITHIN REACH. WILL CONTINUE TO MONITOR DURING SHIFT.
[2019-08-31 20:00] VITALS: BP 110/66
[2019-08-31] MEDS: QUETIAPINE FUMARATE 100 MG TABLET PO SCH (21:39)
--- NOTE | 2019-09-01 07:35 | NUR ---
rn notes patient received on room air, no sob noted, patient denies pain at this time. L IJ and midline L arm 18 present at this time. plan is to have patient MRI of brain and neck for further characterization. bed at the lowest setting, call light within reach, side rails u px2.
[2019-09-01 08:00] VITALS: BP 134/75
[2019-09-01] MEDS: ESCITALOPRAM OXALATE (10 MG) 10 MG TABLET PO SCH (08:08)
[2019-09-01] MEDS: CHOLECALCIFEROL 1,000 UNIT TABLET (VIT D3) PO SCH (08:08)
[2019-09-01] MEDS: ASPIRIN 81 MG TAB.CHEW PO SCH (08:08)
[2019-09-01] MEDS: MULTIVITAMINS,THERAGRAN 1 UDTAB TABLET PO SCH (08:08)
[2019-09-01] MEDS: PANTOPRAZOLE 40 MG TABLET.DR PO SCH (08:08)
--- NOTE | 2019-09-01 11:55 | NUR ---
Social service consult requested by for homelessness. Per MD notes, pt is 54 year old male who presents to the ER with right arm weakness for 2 weeks. Pt's history is unreliable. He mentioned that he had a neck surgery 2 weeks ago at [facility], but Dr. Garcia checked and could not find any medical record. A few days after surgery patient said his right arm got progressively weak. he cant lift his arm now. CUFF SETTER OVERLOCK conducted chart review and met with the pt bedside. CUFF SETTER OVERLOCK introduced self and purpose of the visit. Pt is alert and oriented x 3. Pt is a poor historian. Pt states he resides in a sober living located at [address] [place] [address]. However, pt states, he does not want to go back there. Pt is requesting to go to a congregate. CUFF SETTER OVERLOCK informed him he has to be deemed appropriate for a congregate. CUFF SETTER OVERLOCK to discuss sober living options and provide resources to the pt tomorrow. Pt states, he does not have a history of stroke. Pt receives $930 per month in SSI. Pt denies any suicidal/homicidal ideations and psychiatric illnesses. Pt denies alcohol use and uses marijuana occasionally. Pt smokes a pack a day of cigarettes. CUFF SETTER OVERLOCK completed PhQ-9 depression screening assessment and pt scored a 1, therefore not requiring psychiatric consult at this time. CUFF SETTER OVERLOCK provided pt with active listening supportive counseling, validation of feelings and positive coping skills. Pt was provided brief stroke education. Coding File Clerk is available as needed for support.
[2019-09-01 16:00] VITALS: BP 113/69
--- NOTE | 2019-09-01 17:03 | NUR ---
rn notes patient remains on room air, no sob noted, a/o x3. L IJ 20 and with midline L ARM 18. pending brain and head/neck MRI results. stroke packet done and educated patient. bed at the lowest setting, call light within reach, side raisl up x2.
--- NOTE | 2019-09-01 19:30 | NUR ---
MS/RN OPENING NOTES RECEIVED PATIENT IN BED RESTING, ALERT AND ORIENTED X 3. NO SOB OR DISTRESS NOTED AT THIS TIME. PATIENT IS SATURATING WELL ON ROOM AIR. IV SITE TO LEFT IJ #20 G INTACT AND PATENT, LEFT UPPER ARM MIDLINE , NO REDNESS, NO INFILTRATION PRESENT. PATIENT STATES NO PAIN AT THIS TIME.SAFETY MEASURES ARE IN PLACE, BED IN LOW POSITION AND LOCKED, SIDERAILS UP X 2, CALL LIGHT IS WITHIN REACH. WILL CONTINUE TO MONITOR DURING SHIFT
[2019-09-01 20:00] VITALS: BP 115/70
[2019-09-01] MEDS: QUETIAPINE FUMARATE 100 MG TABLET PO SCH (21:25)
--- NOTE | 2019-09-02 06:15 | NUR ---
MS/RN CLOSING NOTES PATIENT IN BED RESTING, ALERT AND ORIENTED X 2-3. NO SOB OR DISTRESS NOTED AT THIS TIME. PATIENT IS SATURATING WELL ON ROOM AIR. IV SITE TO LEFT IJ #20 G INTACT AND PATENT, LEFT UPPER ARM MIDLINE , NO REDNESS, NO INFILTRATION PRESENT. PATIENT STATES NO PAIN AT THIS TIME.SAFETY MEASURES ARE IN PLACE, BED IN LOW POSITION AND LOCKED, SIDERAILS UP X 2, CALL LIGHT IS WITHIN REACH. PATIENT NEEDS HAVE BEEN MET DURING SHIFT. WILL ENDORSE CARE TO DAY SHIFT NURSE.
[2019-09-02 08:00] VITALS: BP 121/74
--- NOTE | 2019-09-02 08:00 | NUR ---
MS/RN Opening Note Received patient in bed, AO x 3 able to responds all stimuli. Does no c/o pain or discomfort, skin is warm to touch, kept clean/dry. Still notice right upper ext weakness. Respiratory even and unlabored in room air, no sob or distress observed. Keep bed in lock with elevated HOB for secure airway and aspiration precaution. Call light within reach, will continue to monitor.
[2019-09-02] MEDS: PANTOPRAZOLE 40 MG TABLET.DR PO SCH (08:11)
[2019-09-02] MEDS: CHOLECALCIFEROL 1,000 UNIT TABLET (VIT D3) PO SCH (08:12)
[2019-09-02] MEDS: ASPIRIN 81 MG TAB.CHEW PO SCH (08:12)
[2019-09-02] MEDS: ESCITALOPRAM OXALATE (10 MG) 10 MG TABLET PO SCH (08:12)
[2019-09-02] MEDS: MULTIVITAMINS,THERAGRAN 1 UDTAB TABLET PO SCH (08:12)
[2019-09-02] MEDS: CLOPIDOGREL BISULFATE 75 MG TABLET PO SCH (12:17)
[2019-09-02 16:22] VITALS: BP 95/56
--- NOTE | 2019-09-02 17:52 | NUR ---
MS/RN Closing note Patient in bed watching TV comfortably, denies pain or discomfort. Respiratory even and unlabored in room air. Skin is warm to touch, keep clean/dry, pt is continent of B/B and intact skin, also intact IV site on IJ and midline. Keep bed in lock with elevated HOB for secure airway and aspiration precaution. Call light within reach, will endorse date night caregiver.
[2019-09-02 20:00] VITALS: BP 132/82
--- NOTE | 2019-09-02 20:10 | NUR ---
rn notes/assessment: received report form armand sebastian at 1915. pt a/o x3 on ra, respirations even and unlabored. denies any pain at this time. pt able to make needs known. nihss assessment perform. right arm flaccid, no movement, but with + sensation, less strength, and weak hand carbonation equipment tender noted as compared to left arm. right leg weakness. no slurred speech noted. jun midline patent and flushing well, on hl. pt continent, urinal within reach. discussed plan of care for pt, pt agree and understand. scd in use due to decrease leg mobility prevention of blood clot formation. safety precautions for fall initiated, call light in reach, will continue monitoring pt.
[2019-09-02] MEDS: QUETIAPINE FUMARATE 100 MG TABLET PO SCH (22:02)
--- NOTE | 2019-09-03 06:46 | NUR ---
end of shift report: pt remains a/o x3, on ra, nihss score remains 5. no slurred speech noted. md aware. awaiting vascular consult/dr preston. iv access remains patent and flushing well, on hl. vs remains stable, needs attended. safety precautions for fall remains engaged, call light in reach, will endorse to day rn for continuity of care.
[2019-09-03 08:00] VITALS: BP 103/70
[2019-09-03] MEDS: ASPIRIN 81 MG TAB.CHEW PO SCH (08:51)
[2019-09-03] MEDS: MULTIVITAMINS,THERAGRAN 1 UDTAB TABLET PO SCH (08:51)
[2019-09-03] MEDS: CLOPIDOGREL BISULFATE 75 MG TABLET PO SCH (08:51)
[2019-09-03] MEDS: ESCITALOPRAM OXALATE (10 MG) 10 MG TABLET PO SCH (08:51)
[2019-09-03] MEDS: CHOLECALCIFEROL 1,000 UNIT TABLET (VIT D3) PO SCH (08:51)
[2019-09-03] MEDS: PANTOPRAZOLE 40 MG TABLET.DR PO SCH (08:53)
[2019-09-03] MEDS ORDERED: CLOPIDOGREL BISULFATE 75 MG TABLET PO SCH (09:00)
[2019-09-03 16:00] VITALS: BP 116/71
--- NOTE | 2019-09-03 19:25 | NUR ---
M/S RN NOTES PATIENT IN NO RESPIRATORY DISTRESS, NO C/O PAIN. SKIN WARM TO TOUCH, IV ACCESS SITES INTACT AND PATENT. PATIENT'S NEEDS ATTENDED, BED ON LOWEST LOCKED POSITION, CALL LIGHT WITHIN REACH. WILL ENDORSE TO ONCOMING NURSE.
--- NOTE | 2019-09-03 19:35 | NUR ---
MS RN NOTES PATIENT RECEIVED IN BED SLEEPING, EASILY AWAKEN BY NAME. ALERT AND ORIENTED X 3. PATIENT ON ROOM AIR, WITH NO SIGNS OF SOB PRESENT AT THIS TIME, WITH EVEN NON-LABORED BREATHING. PRESENTS WITH RIGHT SIDE WEAKNESS. COMPLAINS OF NO DISCOMFORT OR PAIN AT THIS TIME. IV ACCESS INTACT AND PATENT. SKIN WARM AND DRY TO TOUCH. SAFETY PRECAUTIONS IMPLEMENTED WITH BED LOCKED, BED IN THE LOWEST POSITION, BILATERAL SIDE RAILS UP, AND CALL LIGHT WITHIN EASY REACH OF THE PATIENT. WILL CONTINUE TO MONITOR PATIENT.
[2019-09-03 20:00] VITALS: BP 125/64
[2019-09-03] MEDS: QUETIAPINE FUMARATE 100 MG TABLET PO SCH (22:10)
--- NOTE | 2019-09-04 07:01 | NUR ---
MS RN NOTES PATIENT IN BED SLEEPING, EASILY AWAKEN. ON ROOM AIR WITH NO SIGNS OF SOB NOTED, WITH EVEN NON-LABORED BREATHING. SKIN WARM AND DRY TO TOUCH. IV ACCESS INTACT AND PATENT. PATIENT DENIES PAIN AND DISCOMFORT, PROVIDED COMFORT MEASURES TO PATIENT. SAFETY PRECAUTIONS IN PLACE, WITH BED LOCKED, BED ALARM ON, BILATERAL SIDE RAILS UP, AND CALL LIGHT WITHIN EASY REACH OF THE PATIENT. WILL ENDORSE PLAN OF CARE TO UPCOMING DAYSHIFT NURSE.
--- NOTE | 2019-09-04 07:06 | NUR ---
MS RN OPENING NOTES RECEIVED PT AWAKE IN BED AT THIS TIME. A/O X3 . PT ABLE TO VERBALIZE NEEDS. NO SOB NOTED. NO S/S OF ANY ACUTE DISTRESS, NO C/O PAIN AT THIS TIME. RESPIRATIONS EVEN AND UNLABORED. RADHA MIDLINE HL AND LIJ G#20 HL, NOTED, BOTH PATENT AND INTACT. SAFETY PRECAUTIONS IN PLACE.BED IN LOWEST LOCKED POSITION, HOB ELEVATED TO SEMI FOWLERS POSITION, SIDE RAILS UP X2, BED ALARM ON, CALL LIGHTS WITHIN REACH. WILL CONTINUE TO MONITOR.
[2019-09-04 08:00] VITALS: BP 110/74
[2019-09-04] MEDS: PANTOPRAZOLE 40 MG TABLET.DR PO SCH (08:20)
[2019-09-04] MEDS: ESCITALOPRAM OXALATE (10 MG) 10 MG TABLET PO SCH (09:26)
[2019-09-04] MEDS: CLOPIDOGREL BISULFATE 75 MG TABLET PO SCH (09:26)
[2019-09-04] MEDS: MULTIVITAMINS,THERAGRAN 1 UDTAB TABLET PO SCH (09:26)
[2019-09-04] MEDS: CHOLECALCIFEROL 1,000 UNIT TABLET (VIT D3) PO SCH (09:26)
[2019-09-04] MEDS: ASPIRIN 81 MG TAB.CHEW PO SCH (09:27)
[2019-09-04] MEDS ORDERED: ACET325T53 PO (11:00)
[2019-09-04] MEDS ORDERED: CLOP75TA15 PO (11:00)
--- NOTE | 2019-09-04 12:25 | NUR ---
CREDIT CLERK NOTES. PT DISCHARGED TO HOME AT THIS TIME. IV ACCESS REMOVED, PRESSURE APPLIED, SECURED WITH GAUZE AND TAPE. NO SIGN OF BLEEDING OR INFILTRATION NOTED. PT DISCHARGED INSTRUCTIONS AND INFORMATION TO AVAILABLE RESOURCES PROVIDED. PT VERBALIZED UNDERSTANDING OF DISCHARGE INSTRUCTIONS. ALL CARE, NEEDS TREATMENT AND MEDICATIONS ADMINISTERED ANTICIPATED PER ORDER. BELONGINGS ACCOUNTED FOR, SIGNED AND FILED IN CHART. HOMELESS DISCHARGED WAIVER SIGNED BY PT AND FILED IN CHART. MODE OF TRANSPORTATION PROVIDED VIA BUS TAP CARD. PT ACCOMPANIED TO LOBBY BY MARTA TIJERINA .
== END 2019-09-04 12:15 | disposition home health service (06) | DRG 197 ==
LOC: ER 15:09 → MEDSG1 18:36 → MED 19:07
PROVIDERS: ATTEND Nurse Practitioner Acute Care
PROC: 05HA33Z Insertion of Infusion Device into Left Brachial Vein, Percutaneous Approach (ICD-10-PCS; principal; 2019-08-31)
DX: I72.0 Aneurysm of carotid artery (principal); F20.9 Schizophrenia, unspecified; I65.22 Occlusion and stenosis of left carotid artery; R40.2412 Glasgow coma scale score 13-15, at arrival to emergency department; M48.02 Spinal stenosis, cervical region; D64.9 Anemia, unspecified; E78.5 Hyperlipidemia, unspecified; I10 Essential (primary) hypertension; I25.10 Atherosclerotic heart disease of native coronary artery without angina pectoris; R79.89 Other specified abnormal findings of blood chemistry; I25.2 Old myocardial infarction; Z59.0 Homelessness; R29.702 NIHSS score 2; F17.200 Nicotine dependence, unspecified, uncomplicated; Z98.890 Other specified postprocedural states; Z79.82 Long term (current) use of aspirin; Z79.899 Other long term (current) drug therapy; F12.90 Cannabis use, unspecified, uncomplicated
CPT/HCPCS: 36410; 36415; 70450-TC; 70496-TC; 70498-TC; 70547-TC; 70551-TC; 71045-TC; 72125-TC; 80048-TC; 80061-TC; 80076-TC; 83735-TC; 84100-TC; 84443-TC; 84484-TC; 85025-TC; 85730-TC; 87081-TC; 97110-TC; 97116-TC; 97530-TC; G0378; J7050; Q9967

== ENCOUNTER 2019-09-10 13:35 | Emergency (ER) | payer OTHER ==
[~2019-09-10] VITALS: Ht 182.9 cm; Wt 74.4 kg
[~2019-09-10 13:35] MED LIST changes: +ACET325T53 PO; -ATOR10TA PO; +CHOL10002 PO; +CLOP75TA15 PO; +ESCI10TA PO; +MULT-447 PO; -OLAN15TA3 PO; +QUET200T PO; +TRAZ-257 PO
--- NOTE | 2019-09-10 13:50 | NUR ---
BIBS TO ER BED 12. AAOX4. NOT IN RESP DISTRESS, BREATHING EVEN AND UNLABORED. AMBULATORY. CAME IN FOR MID STERNAL CHEST PAIN SINCE 1200 THEN STARTED TO BECOMING DIZZY. PAIN IS RRATE 6/10 SHARP NON RADIATING. PT PLACED ON MONITOR, NOTED SR. AWAITING MD FOR EVAL.
[2019-09-10] MEDS ORDERED: IV NS 0.9% 1,000 ML BAG IV ONE (15:00)
--- NOTE | 2019-09-10 15:15 | NUR ---
IV LINE OBTAINED ON L WRIST 20G, BLOOD DRAWN AND GIVEN TO RAILROAD CAR CLEANING SUPERVISOR AT BEDSIDE
[2019-09-10 15:44] LABS: BASOPHILS # (AUTO) 0.1 /CMM (0.0-0.2); BASOPHILS % (AUTO) 1.3 % (0.0-2.0); EOSINOPHILS % (AUTO) 2.2 % (0.0-6.0); HEMATOCRIT 37 % (39-51); LYMPHOCYTES # (AUTO) 2.3 /CMM (0.8-4.8); LYMPHOCYTES % (AUTO) 30.2 % (20.0-44.0); MEAN CORPUSCULAR HGB CONC 33 g/dl (31.0-36.0); MEAN CORPUSCULAR VOLUME 102 fL (80-96); MONOCYTES # (AUTO) 0.6 /CMM (0.1-1.30); MONOCYTES % (AUTO) 7.6 % (2.0-12.0); NEUTROPHILS # (AUTO) 4.5 /CMM (1.8-8.9); NEUTROPHILS % (AUTO) 58.7 % (43.0-81.0); PLATELET COUNT (AUTO) 408 /CMM (150-450); WHITE BLOOD COUNT (AUTO) 7.7 K/uL (4.3-11.0)
[2019-09-10 15:53] LABS: CALCIUM, SERUM 9.4 mg/dL (8.5-10.1); CARBON DIOXIDE 26 mmol/L (21-32); CHLORIDE 102 mmol/L (98-107); CREATININE 0.9 mg/dL (0.6-1.3); GLUCOSE 76 mg/dL (74-106); POTASSIUM 3.8 mmol/L (3.5-5.1); SODIUM SERUM 138 mmol/L (136-145); UREA NITROGEN, BLOOD 5 mg/dL (7-18)
--- NOTE | 2019-09-10 17:02 | NUR ---
PT PROVIDED WITH CLEAN PANTS TO CHANGE INTO.
--- NOTE | 2019-09-10 18:07 | NUR ---
Patient discharged to home in stable condition. Written and verbal after care instructions given. Patient verbalizes understanding of instruction.IV removed. Catheter intact and site benign. Pressure and 4x4 applied to site. No bleeding noted. Pt ambulatory with a steady gait. Homeless waiver signed by the patient.
[2019-09-10 18:09] VITALS: BP 144/93
== END 2019-09-10 18:09 | disposition home or self-care (01) ==
LOC: ER 14:26
DX: R42 Dizziness and giddiness (principal); R07.89 Other chest pain; R53.1 Weakness; E78.5 Hyperlipidemia, unspecified; I10 Essential (primary) hypertension; F17.210 Nicotine dependence, cigarettes, uncomplicated; Z59.0 Homelessness; Z86.73 Personal history of transient ischemic attack (TIA), and cerebral infarction without residual deficits; Z98.890 Other specified postprocedural states; Z79.82 Long term (current) use of aspirin; Z79.899 Other long term (current) drug therapy
CPT/HCPCS: 36415; 71045; 80048; 84484; 85025; 93005; 96360; 99285; J7030

== ENCOUNTER 2019-09-23 11:27 | Emergency (ER) | payer OTHER ==
[~2019-09-23] VITALS: Ht 182.9 cm; Wt 72.6 kg
[2019-09-23 12:13] VITALS: BP 122/74
[2019-09-23] MEDS ORDERED: ACETAMINOPHEN ES 500 MG TABLET ONE (13:29)
[2019-09-23] MEDS ORDERED: ACETAMINOPHEN ES 500 MG TABLET PO ONE (13:30)
== END 2019-09-23 13:35 | disposition home or self-care (01) ==
LOC: ER 11:27
DX: M79.10 Myalgia, unspecified site (principal); I10 Essential (primary) hypertension; E78.5 Hyperlipidemia, unspecified; F17.210 Nicotine dependence, cigarettes, uncomplicated; Z98.890 Other specified postprocedural states; Z86.73 Personal history of transient ischemic attack (TIA), and cerebral infarction without residual deficits; Z79.899 Other long term (current) drug therapy; Z79.82 Long term (current) use of aspirin

== ENCOUNTER 2020-12-12 08:57 | Emergency (ER) | payer OTHER ==
[~2020-12-12] VITALS: Ht 182.9 cm; Wt 77.1 kg
[~2020-12-12 08:57] MED LIST changes: -CHOL10002 PO; +CHOL100043 PO
--- NOTE | 2020-12-12 09:10 | NUR ---
Patient came in to the er c/o abd and ear pain 6/10 ps. On room air, breathing evenly and unlabored. kept comfortable, will continue to monitor accordingly.
[2020-12-12] MEDS ORDERED: MAG HYDROX/AL HYDROX/SIMETH 30 ML UDC ONE (09:20)
[2020-12-12] MEDS ORDERED: LIDOCAINE VISCOUS 2% UD 15 ML UDC ONE (09:20)
[2020-12-12] MEDS ORDERED: ONDANSETRON HCL/PF 4 MG/2 ML VIAL ONE (09:21)
[2020-12-12] MEDS ORDERED: ONDA4TAB11 PO (09:28)
[2020-12-12] MEDS ORDERED: ONDANSETRON HCL/PF 4 MG/2 ML VIAL IM ONE (09:30)
[2020-12-12] MEDS ORDERED: MAG HYDROX/AL HYDROX/SIMETH 30 ML UDC PO ONE (09:30)
[2020-12-12] MEDS ORDERED: LIDOCAINE VISCOUS 2% UD 15 ML UDC MM ONE (09:30)
[2020-12-12 09:36] VITALS: BP 122/65
--- NOTE | 2020-12-12 09:37 | NUR ---
Patient given written and verbal discharge instructions. Patient verbalizes understanding of instructions. Patient is ambulatory with steady gait. Refuses offer of care home placement. Patient given list of available shelters in surrounding area.
== END 2020-12-12 09:37 | disposition home or self-care (01) ==
LOC: ER 09:06
DX: R10.84 Generalized abdominal pain (principal); I10 Essential (primary) hypertension; E78.5 Hyperlipidemia, unspecified; F10.10 Alcohol abuse, uncomplicated; F17.200 Nicotine dependence, unspecified, uncomplicated; Y90.9 Presence of alcohol in blood, level not specified; Z89.611 Acquired absence of right leg above knee; Z98.890 Other specified postprocedural states; Z79.899 Other long term (current) drug therapy; Z79.82 Long term (current) use of aspirin
CPT/HCPCS: 96372; 99283; J2405

== ENCOUNTER 2020-12-15 06:39 | Emergency (ER) | payer OTHER ==
[~2020-12-15] VITALS: Ht 182.9 cm; Wt 65.8 kg
[~2020-12-15 06:39] MED LIST changes: +ONDA4TAB11 PO
--- NOTE | 2020-12-15 06:50 | NUR ---
PATIENT CALLED TO TRIAGE NO ANSWER
[2020-12-15 07:32] VITALS: BP 131/79
[2020-12-15] MEDS ORDERED: IBUP-1957 PO (07:41)
--- NOTE | 2020-12-15 07:43 | NUR ---
pt bibself with c/o chronic back pain 08/16. Alert and oriented. kept comfortable in bed. safety measures applied
--- NOTE | 2020-12-15 08:39 | NUR ---
Patient discharged to home in stable condition. Written and verbal after care instructions given. Patient verbalizes understanding of instruction.
== END 2020-12-15 08:43 | disposition home or self-care (01) ==
LOC: ER 06:42
DX: M54.50 Low back pain, unspecified (principal); I10 Essential (primary) hypertension; E78.5 Hyperlipidemia, unspecified; F17.210 Nicotine dependence, cigarettes, uncomplicated; Z98.890 Other specified postprocedural states; Z79.899 Other long term (current) drug therapy; Z79.82 Long term (current) use of aspirin

== ENCOUNTER 2021-02-11 14:48 | Emergency (ER) | payer OTHER ==
[~2021-02-11] VITALS: Ht 182.9 cm; Wt 86.2 kg
[~2021-02-11 14:48] MED LIST changes: +IBUP-1957 PO
--- NOTE | 2021-02-11 15:05 | NUR ---
PT C/O R RING FINGER PAIN AND SWELLING FOR DAYS. UNABLE TO TAKE RING OUT. PT A/OX4. TOLERATING R/A WELL WITH NO SOB
--- NOTE | 2021-02-11 16:02 | NUR ---
RING TO RIGHT 4TH FINGER REMOVED, SKIN INTACT, NO INJURY NOTED
[2021-02-11 16:14] VITALS: BP 150/92
[2021-02-11] MEDS ORDERED: ACET325C7 PO (17:12)
[2021-02-11] MEDS ORDERED: CLIN300C12 PO (17:15)
--- NOTE | 2021-02-11 17:25 | NUR ---
Patient given written and verbal discharge instructions. Patient verbalizes understanding of instructions. Patient is ambulatory with steady gait. Refuses offer of [facility]ci placement. Patient given list of available shelters in surrounding area.
--- NOTE | 2021-02-11 17:28 | NUR ---
UNABLE TO DEPART MEDITECH ERROR.
== END 2021-02-11 17:27 | disposition home or self-care (01) ==
LOC: ER 15:30
DX: S61.304A Unspecified open wound of right ring finger with damage to nail, initial encounter (principal); I10 Essential (primary) hypertension; E78.5 Hyperlipidemia, unspecified; F17.210 Nicotine dependence, cigarettes, uncomplicated; Z98.890 Other specified postprocedural states; Z79.899 Other long term (current) drug therapy; Z79.82 Long term (current) use of aspirin; X58.XXXA Exposure to other specified factors, initial encounter; Y93.89 Activity, other specified; Y92.89 Other specified places as the place of occurrence of the external cause; Y99.8 Other external cause status

== ENCOUNTER 2021-03-26 08:25 | Emergency (ER) | payer OTHER ==
[~2021-03-26] VITALS: Ht 177.8 cm; Wt 85.7 kg
[~2021-03-26 08:25] MED LIST changes: +ACET325C7 PO; +CLIN300C12 PO
--- NOTE | 2021-03-26 08:37 | NUR ---
pt to ed bed 13. came in on a wheelchair states multiple syncopal episode and is been going on for the last 4 years. 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 also requesting placement. denies si/hi. awaitng md bills.
--- NOTE | 2021-03-26 08:41 | NUR ---
dr whittaker at bedside for eval.
--- NOTE | 2021-03-26 09:05 | NUR ---
solder making laborer at bedside for blood draw
[2021-03-26 09:16] LABS: BASOPHILS # (AUTO) 0.1 K/uL (0.0-0.2); BASOPHILS % (AUTO) 0.8 % (0.0-2.0); EOSINOPHILS % (AUTO) 1.4 % (0.0-6.0); HEMATOCRIT 37 % (39-51); HEMOGLOBIN 12.2 g/dL (13.5-17.5); LYMPHOCYTES # (AUTO) 1.5 K/uL (0.8-4.8); MEAN CORPUSCULAR HGB CONC 33 g/dl (31.0-36.0); MEAN CORPUSCULAR VOLUME 102 fL (80-96); MONOCYTES # (AUTO) 0.6 K/uL (0.1-1.30); NEUTROPHILS # (AUTO) 5.3 K/uL (1.8-8.9); NEUTROPHILS % (AUTO) 69.8 % (43.0-81.0); PLATELET COUNT (AUTO) 276 K/uL (150-450); RED BLOOD CELL COUNT(AUTO) 3.65 MIL/uL (4.5-6.0); WHITE BLOOD COUNT (AUTO) 7.6 K/uL (4.3-11.0)
[2021-03-26 10:06] LABS: ALANINE AMINOTRANSFERASE 14 U/L (12-78); ALBUMIN 3.6 g/dL (3.4-5.0); ALKALINE PHOSPHATASE 50 U/L (46-116); ASPARTATE AMINOTRANSFERASE 16 U/L (15-37); BILIRUBIN,DIRECT 0.2 mg/dL (0.0-0.2); BILIRUBIN,TOTAL 0.7 mg/dL (0.2-1.0); CALCIUM, SERUM 9.2 mg/dL (8.5-10.1); CARBON DIOXIDE 26 mmol/L (21-32); CHLORIDE 104 mmol/L (98-107); CREATININE 0.8 mg/dL (0.6-1.3); GLUCOSE 88 mg/dL (74-106); POTASSIUM 4.1 mmol/L (3.5-5.1); SODIUM SERUM 138 mmol/L (136-145); TOTAL PROTEIN, SERUM 7.2 g/dL (6.4-8.2); UREA NITROGEN, BLOOD 11 mg/dL (7-18)
[2021-03-26 10:28] LABS: ACETAMINOPHEN < 10 ug/ml (10-30); ALCOHOL, BLOOD < 3 mg/dL (0-0)
[2021-03-26 13:48] LABS: BILIRUBIN,URINE NEGATIVE (NEGATIVE); COLOR,URINE YELLOW (YELLOW); LEUKOCYTE ESTERASE ,URINE SMALL (NEGATIVE); NITRITE, URINE NEGATIVE (NEGATIVE); PH,URINE 7.5 (5.0-8.0); PROTEIN,URINE NEGATIVE (NEGATIVE); UGLUCOSE NEGATIVE (NEGATIVE)
--- NOTE | 2021-03-26 14:45 | NUR ---
"SS Consult: SS Consult requested for homelessness. The pt. is a 55-year-old Black male patient who was in the ED for Syncope per EMR. Upon SS consult, the pt. is A&O x 4 and makes good eye contact. The pt. appears unkempt and presents with euthymic mood and affect. The pt. is pleasant & cooperative with SW. Pt. denies current SI/HI and denies hallucinations. DONAVON explored pt.s living situation. Per the pt., he has been experiencing homelessness some time. Pt. states he has family but does not want to reach out for help because they have section 8 and can get in trouble for taking him in. Pt. stated he was recently discharged from a SNF and could not provide name. Pt. stated he would like placement. DONAVON explored solutions. Pt. stated he has no income for a board & care. DONAVON offered pt. prison placement. Pt. is agreeable. DONAVON provided pt. with TAP card for bus & bus route to [facility]. DONAVON explored pt.s drug & ETOH use. Pt. denies drug or alcohol use. DONAVON explored pt.s mental health Hx. Pt. denies any Hx. with mental health issues. Pt. states he does receive food stamps. Per pt. he is wheelchair bound as he had his right leg amputated 8 months ago & independent with all his ADLs. Plan: Pt. refused to sign homeless waiver & it was placed in the pt.s chart. DONAVON provided homeless resources to pt. and he refused them. Pt. is agreeable to prison placement. DONAVON provided bus route to [facility] who accept walk ins at 4:30pm. DONAVON discussed DC plan with pt.s nurse and Dr. Brasher. Year-round shelters: [facility] [address] [place], [place] [phone] ; [place] [facility] [place] [address] [place] [address]; [facility] [id number]. [facility] [place] [address] Winter Shelters: SPA 2 | [facility] Mikrovider: Kalyani Revere Address: Confidential (call for location ) Population Served: Coed # of Beds: 57 SPA 4 | [facility] Provider: Home at Last Address: [address] [facility], [address] # of Beds: 49 Population Served: Coed SPA 6 | [facility] Provider: Home at Last Address: [address] [facility], [address] # of Beds: 49 Population Served: Coed Romeo Lopes [facility] Provider: Doreen Lopes CAD Address: [address] [facility] [address] # of Beds: 20 Population Served: Women [facility] Facility Provider: Home at Last Address: [address] [facility] [address] # of Beds: 30 Population Served: Women SPA 8 | [facility] Provider: Nick Address: [address] [facility] [address] # of Beds: 65 Population Served: Coed Hygiene: [facility] [facility]: [address] [facility] ; [place] [facility] [address] [facility] ; [facility] [address] [facility] . Food Resources: [place] [facility] at [facility]- [address] [facility]; Meet Each Need with Dignity ([facility]) [address] [facility]; [facility] [address] [facility]; [facility] [address] [facility]. Mental Health resources provided: [facility] [address] [place] [address] ; [facility] [address] [facility] [address], [place] [address] ; Selma Holland [facility] [address] [place] [address] ; [facility] [address] [place] [address] [address]: [facility] [address] [facility], [address] [place]. [place] ; [facility] [address] [place] [address]; [facility] [address] [facility] [place] [address] [phone] Counseling--Outpatient [facility] [address], [place] [address] (Specializes in in-depth psychotherapy for emotional distress: anxiety, depression, interpersonal conflicts, life transitions, childhood abuse) [facility] [address] [place] [address] (Assist with solving problem marital difficulties, separation & divorce, aging parents, & grief, chronic & terminal illness) [facility] [address] [place] [address] (Deal with loss & grief, anxiety, marital difficulties) Homebound/Mental Health Services [address] [facility], [address] [place] [address] (Provide in-home mental services to people who are incapable of leaving their homes) [facility] Needs of the Elderly Senior Service/Resource Center [address] [facility] [place] [address] [facility] [address] [facility]. [place], [place] [phone] PSYCHIATRIC OUTPATIENT SERVICES [facility] Partial Hospitalization and Intensive Outpatient Program (Managed Care and [place] Only)[address] [facility] [phone] [facility] Partial Hospitalization and Outpatient [id number] [facility]. [address] [place], [place] [phone] [facility] Center Ios[address] [facility] [address] [place], [place] [phone] [facility] Partial Hospitalization and Outpatient [id number] [facility], [phone] Substance Abuse resources provided included: [facility] Substance Abuse Self-Helpline ([facility]) ; [facility]LP [address] [facility]. [place] [address] ; [facility] [place] [address] [facility] [address] ; [facility] [address] [address] [facility] [place] [address] ; [facility] [address] [facility] [address] ; [facility] [address] [facility] [phone] ; [facility] [address] [facility] [phone] ; [facility] Substance Abuse Helpline([facility])-[facility] ; [facility] ; [facility] [place]; [facility] [place]; [facility] [place]; [facility] [place]; [facility] [place]; [place] [facility] [place]; [place] [facility]; [facility] [place]; Alcoholics Anonymous -SFV; Vs-Odod-Recsgxi ; Marijuana Anonymous -[facility]V; Narcotics Anonymous www.na.org;"
[2021-03-26 15:23] VITALS: BP 138/84
--- NOTE | 2021-03-26 15:23 | NUR ---
Patient discharged to home in stable condition. Written and verbal after care instructions given. Patient verbalizes understanding of instruction.
[2021-03-26 15:37] LABS: BACTERIA,URINE 1+ /HPF (None Seen); SQUAMOUS EPITHELIAL CELL,UR Few /HPF (None Seen)
[2021-03-26 15:38] LABS: URINE AMORPHOUS PHOSPHATES Many /HPF (None Seen)
== END 2021-03-26 15:25 | disposition home or self-care (01) ==
LOC: ER 08:26
DX: R45.851 Suicidal ideations (principal); R55 Syncope and collapse; F15.10 Other stimulant abuse, uncomplicated; I10 Essential (primary) hypertension; E78.5 Hyperlipidemia, unspecified; F17.210 Nicotine dependence, cigarettes, uncomplicated; Z59.00 Homelessness unspecified; Z86.73 Personal history of transient ischemic attack (TIA), and cerebral infarction without residual deficits; Z98.890 Other specified postprocedural states; Z79.899 Other long term (current) drug therapy; Z79.82 Long term (current) use of aspirin
CPT/HCPCS: 36415; 71045-TC; 80048-TC; 80076-TC; 81001; 84484-TC; 85025-TC; 87086-TC; G0480

== ENCOUNTER 2021-05-12 16:32 | Emergency (ER) | payer OTHER ==
[~2021-05-12] VITALS: Ht 167.6 cm; Wt 72.6 kg
--- NOTE | 2021-05-12 17:32 | NUR ---
BIBS VIA WHEELCHAIR, HOMELESS. STATES "Been Having Chest pain x couple of months NOT going away- stays there all the time-now bothering me too much.". TO ER BED 1, C/O MID CHEST SHARP PAIN NON-RADIATING. HOOKED TO GAS PLUMBING INSPECTOR. VSS. CHANGED TO HOSP GOWN, WARM BLANKET PROVIDED. PATIENT AAO x 4. BREATHING EVEN AND UNLABORED. AWAITING MD AG.
--- NOTE | 2021-05-12 17:49 | NUR ---
HEEL STAINER AT BEDSIDE
--- NOTE | 2021-05-12 18:35 | NUR ---
DR SPRAGUE AT BEDSIDE
--- NOTE | 2021-05-12 18:40 | NUR ---
NOT ABLE TO ESTABLISH IVP. MADE AWARE
--- NOTE | 2021-05-12 18:44 | NUR ---
MADE FRANKLIN BEE AWARE OF MIDLINE INSERTION.
--- NOTE | 2021-05-12 20:57 | NUR ---
BLOOD DRAWN AND SENT TO LAB.
[2021-05-12 21:10] LABS: BASOPHILS # (AUTO) 0.1 K/uL (0.0-0.2); EOSINOPHILS % (AUTO) 1.9 % (0.0-6.0); HEMATOCRIT 33 % (39-51); HEMOGLOBIN 11.2 g/dL (13.5-17.5); LYMPHOCYTES # (AUTO) 2.1 K/uL (0.8-4.8); LYMPHOCYTES % (AUTO) 32.8 % (20.0-44.0); MEAN CORPUSCULAR HGB CONC 34 g/dl (31.0-36.0); MEAN CORPUSCULAR VOLUME 100 fL (80-96); MONOCYTES # (AUTO) 0.5 K/uL (0.1-1.30); MONOCYTES % (AUTO) 8.6 % (2.0-12.0); NEUTROPHILS # (AUTO) 3.5 K/uL (1.8-8.9); NEUTROPHILS % (AUTO) 55.7 % (43.0-81.0); PLATELET COUNT (AUTO) 335 K/uL (150-450); RED BLOOD CELL COUNT(AUTO) 3.35 MIL/uL (4.5-6.0); WHITE BLOOD COUNT (AUTO) 6.3 K/uL (4.3-11.0)
[2021-05-12 21:57] LABS: CALCIUM, SERUM 8.9 mg/dL (8.5-10.1); CARBON DIOXIDE 22 mmol/L (21-32); CHLORIDE 104 mmol/L (98-107); CREATININE 0.6 mg/dL (0.6-1.3); GLUCOSE 95 mg/dL (74-106); POTASSIUM 3.4 mmol/L (3.5-5.1); SODIUM SERUM 135 mmol/L (136-145); UREA NITROGEN, BLOOD 4 mg/dL (7-18)
[2021-05-12] MEDS ORDERED: FUROSEMIDE 20 MG/2 ML VIAL IV ONE (23:00)
[2021-05-12] MEDS ORDERED: FUROSEMIDE 20 MG/2 ML VIAL ONE (23:29)
[2021-05-12] MEDS ORDERED: FUROSEMIDE 20 MG TABLET ONE (23:37)
--- NOTE | 2021-05-13 00:08 | NUR ---
Patient discharged to home in stable condition. Written and verbal after care instructions given. Patient verbalizes understanding of instruction. IV line removed and 2x2 gauze applied to site without incident.
[2021-05-13 00:18] VITALS: BP 144/92
[2021-05-13] MEDS ORDERED: FUROSEMIDE 40 MG TABLET PO ONE (00:30)
== END 2021-05-13 00:18 | disposition home or self-care (01) ==
LOC: ER 16:35
DX: R07.89 Other chest pain (principal); R10.9 Unspecified abdominal pain; I10 Essential (primary) hypertension; E11.9 Type 2 diabetes mellitus without complications; E78.5 Hyperlipidemia, unspecified; F17.210 Nicotine dependence, cigarettes, uncomplicated; Z89.511 Acquired absence of right leg below knee; Z86.73 Personal history of transient ischemic attack (TIA), and cerebral infarction without residual deficits; Z59.00 Homelessness unspecified; Z79.1 Long term (current) use of non-steroidal anti-inflammatories (NSAID); Z79.82 Long term (current) use of aspirin; Z79.899 Other long term (current) drug therapy
CPT/HCPCS: 36415; 71045; 80048; 83880; 84484 ×2; 85025; 93005 ×2; 99285; J1940

== ENCOUNTER 2021-05-21 07:16 | Emergency (ER) | payer OTHER ==
[~2021-05-21] VITALS: Ht 182.9 cm; Wt 86.2 kg
--- NOTE | 2021-05-21 07:19 | NUR ---
TO ER BED 14, BIBS FOR C/O MID STERNAL CP 09/15 RADIATING TO R ARM SINCE AM, NON RADIATING, AAOX3, BREATHING EVEN AND NON LABORED
[2021-05-21 08:15] LABS: BASOPHILS % (AUTO) 0.7 % (0.0-2.0); EOSINOPHILS % (AUTO) 1.9 % (0.0-6.0); HEMATOCRIT 32 % (39-51); HEMOGLOBIN 10.7 g/dL (13.5-17.5); LYMPHOCYTES # (AUTO) 1.2 K/uL (0.8-4.8); LYMPHOCYTES % (AUTO) 18.3 % (20.0-44.0); MEAN CORPUSCULAR HGB CONC 34 g/dl (31.0-36.0); MEAN CORPUSCULAR VOLUME 102 fL (80-96); MONOCYTES # (AUTO) 0.5 K/uL (0.1-1.30); MONOCYTES % (AUTO) 7.8 % (2.0-12.0); NEUTROPHILS # (AUTO) 4.9 K/uL (1.8-8.9); NEUTROPHILS % (AUTO) 71.3 % (43.0-81.0); PLATELET COUNT (AUTO) 305 K/uL (150-450); RED BLOOD CELL COUNT(AUTO) 3.12 MIL/uL (4.5-6.0); WHITE BLOOD COUNT (AUTO) 6.8 K/uL (4.3-11.0)
[2021-05-21 08:30] LABS: CALCIUM, SERUM 8.1 mg/dL (8.5-10.1); CREATININE 0.6 mg/dL (0.6-1.3); POTASSIUM 3.6 mmol/L (3.5-5.1)
[2021-05-21 08:36] LABS: ALBUMIN 3.2 g/dL (3.4-5.0); BILIRUBIN,DIRECT 0.1 mg/dL (0.0-0.2); BILIRUBIN,TOTAL 0.3 mg/dL (0.2-1.0); TOTAL PROTEIN, SERUM 6.4 g/dL (6.4-8.2)
[2021-05-21 11:08] VITALS: BP 117/76
--- NOTE | 2021-05-21 11:08 | NUR ---
Patient discharged to home in stable condition. Written and verbal after care instructions given. Patient verbalizes understanding of instruction.
== END 2021-05-21 11:09 | disposition home or self-care (01) ==
LOC: ER 07:18
DX: R10.9 Unspecified abdominal pain (principal); R19.7 Diarrhea, unspecified; R06.02 Shortness of breath; I10 Essential (primary) hypertension; E78.5 Hyperlipidemia, unspecified; F17.210 Nicotine dependence, cigarettes, uncomplicated; E11.9 Type 2 diabetes mellitus without complications; Z98.890 Other specified postprocedural states; Z79.899 Other long term (current) drug therapy; Z79.82 Long term (current) use of aspirin
CPT/HCPCS: 36415; 71045-TC; 80048-TC; 80076-TC; 83690-TC; 85025-TC